=== PATIENT | male | born 1960 | race Caucasian/White ===

== ENCOUNTER 2018-09-11 09:11 | Emergency (ER) | payer OTHER ==
--- OUTSIDE RECORDS SUMMARY | 2018-09-11 09:17 | XMS REPORT ---
:1960 [facility] Address [address] [place] [address] [address] [place] [address] Care Team Providers Name Role Phone UNKNOWN, REFFERING Primary Care Provider Unavailable LES SANCHEZ M.D. Unavailable Unavailable Problems This patient has no known problems. Allergies, Adverse Reactions, Alerts This patient has no known allergies or adverse reactions. Medications This patient has no known medications. Results Test Description Test Time Test Comments Text Results Atomic Results Result Comments RPR, Qual 2017-10-17 02:43:00 Test Item Value Reference Range Comments RPR (test code=RPR) Non-Reactive Non-Reactive Thyroid Stimulating Hormone (TSH)2017-10-16 23:39:00 Test Item Value Reference Range Comments TSH (test code=TSH) 0.80 mIU/mL 0.270-4.200 Lipid [id number] 23:31:00 Test Item Value Reference Range Comments Cholesterol (test 156 mg/dL 0-200 code=CHOL) Triglycerides (test 208 mg/dL 9-200 code=TRIG) HDL (test code=HDL) 38 mg/dL 40-60 Chol/HDL (test 4.1 Ratio 0.0-5.0 code=CHOLPHDL) LDL, Calculated (test 76 0-130 (NOTE)RISK OF HEART code=LDLC) DISEASEPublished by Vincentian Heart AssociationAnalyte Optimal Boderline Increased RiskCHOL <200 200-239 >240TRIG <150 150-199 >200HDL Male: >60 <40HDL Female: >60 <50LDL <100 130-159 >160LDL NEAR OPTIMAL IS 100-129 VLDL (test code=VLDL) 42 mg/dL 5-40 LDL/HDL (test code=LDLPHDL) 2 Alcohol/Ethanol, [id number] 16:53:00 Test Item Value Reference Range Comments Alcohol, Ethyl (test <0.01 g/dL 0.00-0.01 Intoxicated 0.080 g/dL or code=ETOH) more Comprehensive Metabolic [id number] 16:53:00 Test Item Value Reference Range Comments Sodium (test code=NA) 139 mmol/L 135-145 Potassium (test code=K) 3.9 mmol/L 3.5-5.1 Chloride (test code=CL) 101 mmol/L 98-105 Carbon Dioxide (test 29 mmol/L 22-29 code=CO2) Glucose (test code=GLU) 90 mg/dL 70-115 Blood Urea Nitrogen 7 mg/dL 6-20 (test code=BUN) Creatinine (test 0.9 mg/dL 0.7-1.2 code=CREAT) Calcium (test code=CA) 9.2 mg/dL 8.3-10.5 Prot Total (test 6.5 g/dL 6.4-8.3 code=TP) Albumin (test code=ALB) 4.0 g/dL 3.5-5.2 A/G Ratio (test 1.6 Ratio code=AGRATIO) Globulin (test 2.5 2.9-3.1 code=GLOB) Bili Total (test 0.4 mg/dL 0.1-0.9 code=TBIL) Alk Phos (test 67 U/L 40-129 code=APHOS) AST (test code=AST) 36 U/L 1-40 ALT (test code=ALT) 47 U/L 1-41 BUN/Creatinine Ratio 7.8 (test code=BCRATIO) Anion Gap (test 9 mmol/L 7-16 code=AGAP) Estimated GFR (test >60 mL/min/1.73m2 eGFR (estimated Glomerular code=GFR) Filtration Rate) is an estimated value,calculated from the patient's serum creatinine using the MDRD equation.It is NOT the patient's actual GFR. The eGFR provides a more clinicallyuseful measure of kidney disease than serum creatinine alone.This calculation takes sex and race into account, if the informationis provided. If the race is not provided, and the patient isAfrican-Vincentian, multiply by 1.212. If sex is not provided, and thepatient is female, multiply by 0.742. Results for patients <18 years ofage have not been validated by the MDRD study and should be interpretedwith caution.eGFR Result Interpretation:eGFR > or=60 is in the Normal RangeeGFR < 60 may mean kidney diseaseeGFR < 15 may mean kidney failureRanges recommended by the National Kidney Foundation,http://nkdep.nih .gov [id number] 16:53:00 Test Item Value Reference Range Comments Amphetamine (test code=AMPH) Negative Negative For diagnostic purposes only, positive results should always be assessedin conjunctionwith the patient's medical history,clinical examination and otherfindings.To fulfill legal requirements, a more specific alternate chemical methodmust be used inorder to obtain a Confirmed analytical result. GC/MS is the preferred confirmatory method. Barbiturates (test code=ROSS) Negative Negative Benzodiazepine (test Negative Negative code=ALYSSA) Cocaine (test code=COCA) POSITIVE Negative Methadone (test code=MTHD) Negative Negative Opiates (test code=OPIA) Negative Negative PCP (test code=PCP) Negative Negative Propoxyphene (test Negative Negative code=PROPOX) THC (test code=THC) POSITIVE Negative CBC with [id number] 16:40:00 Test Item Value Reference Range Comments WBC (test code=WBC) 7.8 K/cumm 4.4-10.5 RBC (test code=RBC) 4.82 M/cumm 4.10-5.70 Hemoglobin (test code=HGB) 15.5 gm/dL 13.4-17.4 Hematocrit (test code=HCT) 44.0 % 38.7-52.0 MCV (test code=MCV) 91.3 fL 80-100 MCH (test code=MCH) 32.2 pg 27.0-32.5 MCHC (test code=MCHC) 35.2 g/dL 32.0-37.5 RDW (test code=RDW) 12.0 % 11.5-14.5 Platelet Count (test code=PLTCT) 219 K/cumm 140-440 MPV (test code=MPV) 9.6 fL Diff Method (test code=DIFFM) Auto Neutrophil (test code=NEUT) 44.1 % 36-70 Lymphocyte (test code=LYMPH) 45.4 % 12-44 Monocyte (test code=MONO) 6.3 % 0-11 Eosinophil (test code=EOS) 3.6 % 0-7 Basophil (test code=BASO) 0.7 % 0-2 Neutro Abs (test code=ANEUT) 3.5 K/cumm 1.6-7.4 Lymph Abs (test code=ALYMPH) 3.5 K/cumm 0.5-4.6 [place] Abs (test code=AMONO) 0.5 K/cumm 0.0-1.2 Eos Abs (test code=AEOS) 0.28 K/cumm 0.00-0.74 Baso Abs (test code=ABASO) 0.1 K/cumm 0.00-0.21 Urinalysis [id number] 16:30:00 Test Item Value Reference Range Comments Color (test code=COLOR) Yellow Yellow,Straw,Pl yellow Clarity (test code=CLAR) Clear Clear Specific [place] (test code=SPGR) 1.008 1.001-1.035 pH (test code=PH) 6.5 5.0-9.0 Ketone (test code=KET) Negative mg/dL Negative Glucose (test code=GLUCUR) Negative mg/dL Negative Protein (test code=PROT) Negative mg/dL Negative Bilirubin (test code=BILI) Negative mg/dL Negative Occult Blood (test code=UDOB) Negative Negative Urobilinogen (test code=UROB) 0.2 mg/dL 0.2-1.0 Nitrite (test code=NIT) Negative Negative Leuk Esterase (test code=LEUK) Negative Negative Micros Exam (test code=MEXAM) Not indicated
[2018-09-11 10:27] LABS: Absolute Lymphocytes (CBC) 2.7 K/uL (0.7-4.9); Absolute Monocytes 0.9 K/uL (0.1-1.3); Absolute Neutrophil 4.8 K/uL (1.8-8.0); Basophils % 0.5 % (0-1.3); Eosinophils % 2.3 % (0-4.4); Hematocrit 53.7 % (39.6-49.0); MCH 33.4 pg (27.0-35.0); MCV 95.1 fL (80-100); MPV 8.7 fL (7.6-11.3); Monocytes % 10.6 % (3.3-12.3); RBC Red Blood Cell Count 5.64 M/uL (4.33-5.43)
[2018-09-11 10:35] LABS: Protime INR 1.12
[2018-09-11 10:39] LABS: ALT/SGPT 89 U/L (12-78); AST/SGOT 41 U/L (15-37); Albumin 4.3 g/dL (3.4-5.0); Alkaline Phosphatase 86 U/L (45-117); BUN Blood Urea Nitrogen 11 mg/dL (7-18); Bicarbonate 25 mmol/L (21-32); Bilirubin Direct 0.2 mg/dL (0-0.2); Bilirubin Total 0.6 mg/dL (0.2-1.0); Glucose Level 81 mg/dL (74-106); Potassium 3.5 mmol/L (3.5-5.1); Protein, Total 8.9 g/dL (6.4-8.2); Sodium Level 141 mmol/L (136-145)
[2018-09-11] MEDS ORDERED: NICOTINE 21 MG/PAT TD ONE (10:45)
[2018-09-11] MEDS ORDERED: NA CHLORIDE 0.9% 1,000 ML ONE (10:45)
--- NOTE | 2018-09-11 13:30 | EKG ---
Test Date: 2018-09-11 Test Time: 10:00:23 [employer]: PAT MEASUREMENT RESULTS: Intervals: Rate: 103 VA: 140 QRSD: 74 QT: 332 QTc: 434 [place]: P: 72 VA: 140 QRS: 82 T: 53 INTERPRETIVE STATEMENTS: Sinus tachycardia Otherwise normal ECG Compared to ECG 11/24/2017 10:21:39 Sinus rhythm no longer present Electronically Signed On 09-11-18 13:29:39 CDT by Jere Puente
[2018-09-11 13:37] LABS: Urine Blood NEGATIVE (NEG); Urine Glucose NEGATIVE (NEG); Urine Protein NEGATIVE (NEG)
[2018-09-11 13:40] LABS: Barbiturates NEGATIVE (NEGATIVE); Benzodiazepines NEGATIVE (NEGATIVE); Cocaine NEGATIVE (NEGATIVE); METHAMPHETAM POSITIVE (NEGATIVE); Methadone NEGATIVE (NEGATIVE); Opiates NEGATIVE (NEGATIVE); Phencyclidine NEGATIVE (NEGATIVE); THC Cannibis NEGATIVE (NEGATIVE)
--- NOTE | 2018-09-11 16:21 | EDPHYS ---
Physician Documentation [facility] Name: Hi Chandler Age: 58 yrs Sex: Male : 1960 Arrival Date: 09/11/2018 Time: 09:17 Bed 17 Private MD: ED Physician Alex Whiteside HPI: 09/11 09:55 This 58 yrs old Male presents to ER via EMS with complaints of Suicidal kb Ideation. 09:55 The patient presents to the emergency department with suicide ideation, but the patient kb has no formulated plan. Onset: The symptoms/episode began/occurred today. Past psychiatric history: Prior diagnosis: schizophrenia, Psychiatric medications include: Invega. Associated signs and symptoms: Pertinent positives; suicide ideation. Severity of symptoms: At their worst the symptoms were moderate in the emergency department the symptoms are unchanged. The patient has experienced similar episodes in the past, a few times. The patient has not recently seen a physician. Pt reports his family called 911 because they knew he needed his Invega shot so they were trying to get him here to get it. States he missed his appt with [facility] to get his shot. States when he doesn't get it, he becomes homicidal. Denies suicidal and homicidal ideations at this time. [facility] reported pt c/o suicidal ideations on scene and asked to come to hospital to get help. Historical: - Allergies: 09:27 Ativan; ph - Home Meds: 13:14 Invega Oral [Active]; ph - PMHx: 09:27 Bipolar disorder; Schizophrenia; ph - PSHx: 09:27 None; ph - Immunization history:: Adult Immunizations unknown. - Social history:: Smoking status: unknown. - Ebola Screening: : No symptoms or risks identified at this time. ROS: 09:59 Constitutional: Negative for fever, chills, and weight loss, Cardiovascular: Negative kb for chest pain, palpitations, and edema, Respiratory: Negative for shortness of breath, cough, wheezing, and pleuritic chest pain, Abdomen/GI: Negative for abdominal pain, nausea, vomiting, diarrhea, and constipation, Back: Negative for injury and pain, : Negative for injury, bleeding, discharge, and swelling, MS/Extremity: Negative for injury and deformity, Skin: Negative for injury, rash, and discoloration, Neuro: Negative for headache, weakness, numbness, tingling, and seizure. 09:59 Psych: Positive for suicidal ideation. Exam: 09:59 Constitutional: This is a well developed, well nourished patient who is awake, alert, kb and in no acute distress. Head/Face: Normocephalic, atraumatic. Chest/axilla: Normal chest wall appearance and motion. Nontender with no deformity. No lesions are appreciated. Cardiovascular: Regular rate and rhythm with a normal S1 and S2. No gallops, murmurs, or rubs. Normal PMI, no JVD. No pulse deficits. Respiratory: Lungs have equal breath sounds bilaterally, clear to auscultation and percussion. No rales, rhonchi or wheezes noted. No increased work of breathing, no retractions or nasal flaring. Abdomen/GI: Soft, non-tender, with normal bowel sounds. No distension or tympany. No guarding or rebound. No evidence of tenderness throughout. Back: No spinal tenderness. No costovertebral tenderness. Full range of motion. Skin: Warm, dry with normal turgor. Normal color with no rashes, no lesions, and no evidence of cellulitis. MS/ Extremity: Pulses equal, no cyanosis. Neurovascular intact. Full, normal range of motion. Neuro: Awake and alert, GCS 15, oriented to person, place, time, and situation. Cranial nerves II-XII grossly intact. Motor strength 5/5 in all extremities. Sensory grossly intact. Cerebellar exam normal. Normal gait. 09:59 Psych: Behavior/mood is cooperative, Affect is calm, Oriented to person, place, time, Patient has no thoughts/intents to harm self or others. Judgement / Insight is normal. Memory is normal. Delusions/hallucinations are not present. Vital Signs: 09:26 BP 124 / 88; Pulse 96; Resp 18; Temp 97.6; Pulse Ox 99% on R/A; ph 12:51 BP 119 / 84; Pulse 80; Resp 18; Pulse Ox 100% on R/A; mh5 16:20 BP 120 / 74; Pulse 76; Resp 17; Pulse Ox 99% on R/A; mh5 MDM: 09:18 Patient medically screened. kb 10:00 Data reviewed: vital signs, nurses notes. Data interpreted: Pulse oximetry: on room air kb is 99 %. Interpretation: normal. 16:14 Counseling: I had a detailed discussion with the patient and/or guardian regarding: the kb historical points, exam findings, and any diagnostic results supporting the discharge/admit diagnosis, lab results, radiology results, the need for outpatient follow up, a family practitioner, a psychiatrist, to return to the emergency department if symptoms worsen or persist or if there are any questions or concerns that arise at home. ED course: [facility] screener evaluated pt. Reports she has seen him a lot in the past. She does not think he is a harm to himself or others and can go home. Pt has appt with [facility] scheduled for next week and will receive his shot then. Pt continues to deny homicidal or suicidal ideations. States he will keep appt next week and will return if needed.. 09/11 09:34 Order name: Acetaminophen; Complete Time: 10:48 kb 09/11 09:34 Order name: Basic Metabolic Panel; Complete Time: 10:48 kb 09/11 09:34 Order name: CBC with Diff; Complete Time: 10:32 kb 09/11 09:34 Order name: ETOH Level; Complete Time: 10:32 kb 09/11 09:34 Order name: Hepatic Function; Complete Time: 10:48 kb 09/11 09:34 Order name: PT-INR; Complete Time: 10:48 kb 09/11 09:34 Order name: Ptt, Activated; Complete Time: 10:48 kb 09/11 09:34 Order name: Salicylate; Complete Time: 10:48 kb 09/11 09:34 Order name: Urine Drug Screen; Complete Time: 13:41 kb 09/11 09:34 Order name: EKG; Complete Time: 09:35 kb 09/11 10:04 Order name: Diet Regular; Complete Time: 10:05 mh5 09/11 13:35 Order name: Urine Dipstick--Ancillary (enter results); Complete Time: 13:40 bd 09/11 09:34 Order name: EKG - Nurse/Tech; Complete Time: 09:59 kb 09/11 09:34 Order name: IV Saline Lock; Complete Time: 10:00 kb 09/11 09:34 Order name: Labs collected and sent; Complete Time: 10:06 kb 09/11 09:34 Order name: Urine Dipstick-Ancillary (obtain specimen); Complete Time: 13:15 kb 09/11 11:39 Order name: Diet Regular; Complete Time: 11:39 5 09/11 15:19 Order name: Diet Regular; Complete Time: 15:20 mh5 09/11 15:21 Order name: Regular EDMS Administered Medications: 10:55 Drug: NS 0.9% 1000 ml Route: IV; Rate: 1000 ml; Site: right antecubital; ph 16:35 Follow up: Response: No adverse reaction; IV Status: Completed infusion ph 11:07 Drug: Nicotine 21 mg/24 hr 1 patches {Note: applied to R upper arm.} Route: ph Transdermal; Site: affected area; 16:35 Follow up: Response: No adverse reaction ph Disposition: 09/11/18 16:20 Discharged to Home. Impression: Suicidal ideations - no longer having suicidal ideations. - Condition is Stable. - Discharge Instructions: Suicidal Feelings: How to Help Yourself. - Medication Reconciliation Form, Thank You Letter, Antibiotic Education, Prescription Opioid Use form. - Follow up: Emergency Department; When: As needed; Reason: Worsening of condition. Follow up: Private Physician; When: 2 - 3 days; Reason: Recheck today's complaints, Continuance of care, Re-evaluation by your physician. Addendum: 09/21/2018 08:07 Co-signature as Attending Physician, Alex Whiteside MD I agree with the assessment and k dr plan of care. Signatures: Dispatcher [employer] EDMD Eduarda Edward, FORM SETTER STEEL FORMS-C FORM SETTER STEEL FORMS-Ckb Alex Whiteside MD MD [facility] Tamie Del Toro RN RN ph Corrections: (The following items were deleted from the chart) 09/11 10:01 09:55 Pt reports his family called 911 because they knew he needed his Invega shot so kb they were trying to get him here to get it. States he missed his appt with [facility] to get his shot. States when he doesn't get it, he becomes homicidal. Denies suicidal and homicidal ideations at this time. [facility] reported pt c/o suicidal ideations on scene. . kb 16:36 16:20 09/11/2018 16:20 Discharged to Home. Impression: Suicidal ideations - no longer ph having suicidal ideations. Condition is Stable. Forms are Medication Reconciliation Form, Thank You Letter, Antibiotic Education, Prescription Opioid Use. Follow up: Emergency Department; When: As needed; Reason: Worsening of condition. Follow up: Private Physician; When: 2 - 3 days; Reason: Recheck today's complaints, Continuance of care, Re-evaluation by your physician. kb
--- NOTE | 2018-09-11 16:21 | ER ---
Nurse's Notes [facility] Name: Hi Chandler Age: 58 yrs Sex: Male : 1960 Arrival Date: 09/11/2018 Time: 09:17 Bed 17 Private MD: Diagnosis: Suicidal ideations-no longer having suicidal ideations Presentation: 09/11 09:23 Presenting complaint: EMS states: Pt reports having suicidal thoughts, denies attempt ph or organized plan, reports hx of schizophrenia and states that he did not take his meds today, PD on scene, mental health deputy notified. Transition of care: patient was not received from another setting of care. Onset of symptoms was September 11, 2018. Risk Assessment: Do you want to hurt yourself or someone else? Patient reports desire/thoughts of hurting themselves or someone else. Provider notified. Other: pt reports suicidal thoughts. Initial Sepsis Screen: Does the patient meet any 2 criteria? No. Patient's initial sepsis screen is negative. Does the patient have a suspected source of infection? No. Patient's initial sepsis screen is negative. Care prior to arrival: None. :23 Method Of Arrival: EMS: [facility] :23 Acuity: CARMELO 2 ph Historical: - Allergies: 09:27 Ativan; ph - Home Meds: 13:14 Invega Oral [Active]; ph - PMHx: :27 Bipolar disorder; Schizophrenia; ph - PSHx: :27 None; ph - Immunization history:: Adult Immunizations unknown. - Social history:: Smoking status: unknown. - Ebola Screening: : No symptoms or risks identified at this time. Screenin:03 Abuse screen: Denies threats or abuse. Denies injuries from another. Nutritional ph screening: No deficits noted. Tuberculosis screening: No symptoms or risk factors identified. Fall Risk None identified. Assessment: 10:02 General: Appears in no apparent distress. comfortable, slender, Behavior is calm, ph cooperative, appropriate for age. Pain: Denies pain. Neuro: Level of Consciousness is awake, alert, obeys commands, Oriented to person, place, time, situation. Cardiovascular: Capillary refill < 3 seconds in bilateral fingers Patient's skin is warm and dry. Respiratory: Airway is patent Respiratory effort is even, unlabored, Respiratory pattern is regular, symmetrical. GI: No signs and/or symptoms were reported involving the gastrointestinal system. Derm: Skin is intact, is healthy with good turgor, Skin is pink, warm \\T\\ dry. Musculoskeletal: Circulation, motion, and sensation intact. Range of motion: intact in all extremities. 10:53 Reassessment: Pt attempting to leave room and ambulate in hallway, states, " I just ph want to walk around and get some exercise and I want to go out and smoke a cigarette." Pt escorted back to room by nurse, explained to pt that he could not leave room or go out to smoke due to hospital policy, pt now resting quietly in bed, nicotine patch placed. 11:25 Reassessment: Pt again attempting to leave room, states, " I need to be released." Pt ph again instructed to remain in room by RN, informed pt that we are awaiting [facility] to come and evaluate him, pt now lying in bed quietly. 13:13 Reassessment: Patient appears in no apparent distress at this time. Patient and/or ph family updated on plan of care and expected duration. Pain level reassessed. Patient is alert, oriented x 3, equal unlabored respirations, skin warm/dry/pink. Pt resting quietly at this time, urine sample obtained. 14:30 Reassessment: Patient appears in no apparent distress at this time. Patient and/or ph family updated on plan of care and expected duration. Pain level reassessed. Patient is alert, oriented x 3, equal unlabored respirations, skin warm/dry/pink. Pt resting quietly, denies suicidal or homicidal thoughts at this time, awaiting evaluation by [facility]. 16:00 Reassessment: Patient appears in no apparent distress at this time. Patient and/or ph family updated on plan of care and expected duration. Pain level reassessed. Patient is alert, oriented x 3, equal unlabored respirations, skin warm/dry/pink. [facility] home furnishings sales representative at bedside to speak w/ pt. 16:32 Reassessment: Patient appears in no apparent distress at this time. Patient is alert, ph oriented x 3, equal unlabored respirations, skin warm/dry/pink. Pt instructed to keep follow up appointment next week, pt agrees to do so, continues to deny homicidal or suicidal thoughts, d/c home. Psych: 10:04 Subjective: Delusions are denied, Hallucinations are denied Having thoughts of suicide. ph Denies suicidal plan. Objective: Patient is cooperative, Speech is normal, Affect is appropriate. Interventions: Removed personal items and placed in bag. Patient placed in hospital gown. Searched person for dangerous items. Urine collected and sent for urine drug test. Belonging list filled out. Suicide Risk Assessment: Sad Person Scale: Sex of patient: Male: Score 1 point. Age of patient: Score 0 point if patient falls outside of specified age parameters. Depression: Score 1 point if signs of depression are present. Previous Attempt: Score 0 point if patient has not previously attempted suicide. Substance Abuse: Score 0 point if patient does not abuse alcohol or drugs. Rational Thinking: Score 0 point if patient has rational thinking. Social Support: Score 1 point if social support is lacking and/or unavailable. Organized Plan: Score 0 if patient did not have an organized plan in place. Relationship: Score 1 point if patient is , , , or for a single male Chronic Sickness: Score 0 point if patient does not have a chronic illness, debilitating, or severe disorder. TOTAL POINTS: If total points are 3-4, proposed clinical action is close follow-up/consider hospitalization. Safety Checks: Personal items have been removed. Door is open. No visitors are present at this time. Pt denies substance abuse. 10:06 Commitment: Patient will be a voluntary commitment. ph Vital Signs: 09:26 BP 124 / 88; Pulse 96; Resp 18; Temp 97.6; Pulse Ox 99% on R/A; ph 12:51 BP 119 / 84; Pulse 80; Resp 18; Pulse Ox 100% on R/A; mh5 16:20 BP 120 / 74; Pulse 76; Resp 17; Pulse Ox 99% on R/A; mh5 ED Course: 09:17 Patient arrived in ED. hb 09:18 Eduarda Edward FNP-C [facility]. kb 09:18 Alex Whiteside MD is Attending Physician. kb 09:23 Tamie Del Toro RN is Primary Nurse. ph 09:26 Triage completed. ph 09:28 Arm band placed on. ph 09:30 Safety checks: Items removed: yes. Door open/sign placed on door: yes. Family/friend mh5 present: no. Sitter present: Yes. 09:30 Patient has correct armband on for positive identification. Placed in gown. Bed in low mh5 position. Side rails up X 1. 09:45 Safety checks: Items removed: yes. Door open/sign placed on door: yes. Family/friend mh5 present: no. Sitter present: Yes. 09:59 Initial lab(s) drawn, by me, sent to lab. Inserted saline lock: 22 gauge in right mh5 antecubital area, using aseptic technique. Blood collected. 10:00 Warm blanket given. 5 10:00 Safety checks: Items removed: yes. Door open/sign placed on door: yes. Family/friend mh5 present: no. Sitter present: Yes. Patient has correct armband on for positive identification. 10:01 EKG done, by heavy equipment service technician. reviewed by Eduarda PETIT. at1 10:05 Acetaminophen Sent. mh5 10:05 Basic Metabolic Panel Sent. mh5 10:05 CBC with Diff Sent. mh5 10:05 ETOH Level Sent. mh5 10:05 Hepatic Function Sent. mh5 10:05 PT-INR Sent. mh5 10:05 Ptt, Activated Sent. mh5 10:05 Salicylate Sent. mh5 10:05 Urine Drug Screen Sent. mh5 10:15 Safety checks: Items removed: yes. Door open/sign placed on door: yes. Family/friend mh5 present: no. Sitter present: Yes. 10:30 Safety checks: Items removed: yes. Door open/sign placed on door: yes. Family/friend mh5 present: no. Sitter present: Yes. 10:43 Warm blanket given. 5 10:45 Safety checks: Items removed: yes. Door open/sign placed on door: yes. Family/friend mh5 present: no. Sitter present: Yes. 11:00 Safety checks: Items removed: yes. Door open/sign placed on door: yes. Family/friend mh5 present: no. Sitter present: Yes. 11:15 Safety checks: Items removed: yes. Door open/sign placed on door: yes. Family/friend mh5 present: no. Sitter present: Yes. 11:30 Safety checks: Items removed: yes. Door open/sign placed on door: yes. Family/friend mh5 present: no. Sitter present: Yes. 11:45 Safety checks: Items removed: yes. Door open/sign placed on door: yes. Family/friend mh5 present: no. Sitter present: Yes. 11:56 Diet: Patient given a regular meal tray. mh5 12:00 Safety checks: Items removed: yes. Door open/sign placed on door: yes. Family/friend mh5 present: no. Sitter present: Yes. 12:15 Safety checks: Items removed: yes. Door open/sign placed on door: yes. Family/friend mh5 present: no. Sitter present: Yes. 12:30 Safety checks: Items removed: yes. Door open/sign placed on door: yes. Family/friend mh5 present: no. Sitter present: Yes. 12:45 Safety checks: Items removed: yes. Door open/sign placed on door: yes. Family/friend mh5 present: no. Sitter present: Yes. 13:00 Safety checks: Items removed: yes. Door open/sign placed on door: yes. Family/friend mh5 present: no. Sitter present: Yes. 13:14 No provider procedures requiring assistance completed. ph 13:15 Safety checks: Items removed: yes. Door open/sign placed on door: yes. Family/friend mh5 present: no. Sitter present: Yes. 13:30 Safety checks: Items removed: yes. Door open/sign placed on door: yes. Family/friend mh5 present: no. Sitter present: Yes. 14:00 Safety checks: Items removed: yes. Door open/sign placed on door: yes. Family/friend mh5 present: no. Sitter present: Yes. 14:15 Safety checks: Items removed: yes. Door open/sign placed on door: yes. Family/friend mh5 present: no. Sitter present: Yes. 14:30 Safety checks: Items removed: yes. Door open/sign placed on door: yes. Family/friend mh5 present: no. Sitter present: Yes. 15:00 Safety checks: Items removed: yes. Door open/sign placed on door: yes. Family/friend mh5 present: no. Sitter present: Yes. 15:15 Safety checks: Items removed: yes. Door open/sign placed on door: yes. Family/friend mh5 present: no. Sitter present: Yes. 15:30 Safety checks: Items removed: yes. Door open/sign placed on door: yes. Family/friend mh5 present: no. Sitter present: Yes. 16:00 Safety checks: Family/friend present: Other: [facility] BUS MECHANIC IN WITH [employer]ATE[employer]. 5 Safety checks: Items removed: yes. Door open/sign placed on door: yes. Family/friend present: Sitter present: Yes. 16:15 Safety checks: Items removed: yes. Door open/sign placed on door: yes. Family/friend mh5 present: no. Sitter present: Yes. 16:35 IV discontinued, intact, bleeding controlled, No redness/swelling at site. Pressure ph dressing applied. Administered Medications: 10:55 Drug: NS 0.9% 1000 ml Route: IV; Rate: 1000 ml; Site: right antecubital; ph 16:35 Follow up: Response: No adverse reaction; IV Status: Completed infusion ph 11:07 Drug: Nicotine 21 mg/24 hr 1 patches {Note: applied to R upper arm.} Route: ph Transdermal; Site: affected area; 16:35 Follow up: Response: No adverse reaction ph Outcome: 16:20 Discharge ordered by . kb 16:34 Discharged to home ambulatory. ph 16:34 Condition: good 16:34 Discharge instructions given to patient, Instructed on discharge instructions, follow up and referral plans. Demonstrated understanding of instructions, follow-up care. 16:36 Patient left the ED. ph Signatures: Eduarda Edward, CLINICAL MANAGER HOME CARE-C CLINICAL MANAGER HOME CARE-Ckb Shelley Bruce, getter filler EKG Tat1 Tamie Del Toro RN RN Georgia Mari RN RN Shanda Feliciano [facility] Corrections: (The following items were deleted from the chart) 10:04 10:00 Patient has correct armband on for positive identification. Placed in gown. Bed mh5 in low position. Side rails up X 1. mh5 10:06 10:04 Subjective: Patient's mood is cooperative and pleasant Delusions are denied, ph Hallucinations are denied Having thoughts of suicide. Denies suicidal plan. ph 11:41 09:23 Risk Assessment: Do you want to hurt yourself or someone else? Patient reports no ph desire to harm self or others. ph 15:21 14:30 Safety checks: Items removed: yes. Door open/sign placed on door: yes. mh5 Family/friend present: no. Sitter present: No. mh5
[2018-09-11 16:41] VITALS: TEMP 97.6
[2018-09-11 16:43] VITALS: BP 120/74; O2SAT 99
== END 2018-09-11 16:36 | disposition home or self-care (01) ==
LOC: ER 09:11
CPT/HCPCS: 36415; 80048; 80076; 80307 ×8; 80320; 80329 ×2; 81003; 85025; 85610; 85730; 93005; 96360; 96361; 99285; J7030

== ENCOUNTER 2019-05-29 15:11 | Emergency (ER) | payer OTHER ==
--- OUTSIDE RECORDS SUMMARY | 2019-05-29 15:14 | XMS REPORT ---
:1960 [facility] Address [address] [place] [address] [address] [place] [address] Care Team Providers Name Role Phone UNKNOWN, [...] TSH (test code=TSH) 0.80 mIU/mL 0.270-4.200 Lipid [id number] 23:31:00 Test Item Value Reference Range Comments Cholesterol (test 156 mg/dL 0-200 code=CHOL) Triglycerides (test 208 mg/dL 9-200 code=TRIG) HDL (test code=HDL) 38 mg/dL 40-60 Chol/HDL (test 4.1 Ratio 0.0-5.0 code=CHOLPHDL) LDL, Calculated (test 76 0-130 (NOTE)RISK OF HEART code=LDLC) DISEASEPublished by Samoan Heart AssociationAnalyte Optimal Boderline Increased RiskCHOL <200 200-239 >240TRIG <150 150-199 >200HDL Male: >60 <40HDL Female: >60 <50LDL <100 130-159 >160LDL NEAR OPTIMAL IS 100-129 VLDL (test code=VLDL) 42 mg/dL 5-40 LDL/HDL (test code=LDLPHDL) 2 Alcohol/Ethanol, [id number] 16:53:00 Test Item Value Reference Range Comments Alcohol, Ethyl (test <0.01 g/dL 0.00-0.01 Intoxicated 0.080 g/dL or code=ETOH) more Comprehensive Metabolic [id number] 16:53:00 Test Item Value Reference Range Comments [...] race is not provided, and the patient isAfrican-Samoan, multiply by 1.212. If sex is not provided, and thepatient is female, multiply by 0.742. Results for patients <18 years ofage have not been validated by the MDRD study and should be interpretedwith caution.eGFR Result Interpretation:eGFR > or=60 is in the Normal RangeeGFR < 60 may mean kidney diseaseeGFR < 15 may mean kidney failureRanges recommended by the National Kidney Foundation,http://nkdep.nih .gov [id number] 16:53:00 Test Item Value Reference Range Comments [...] THC (test code=THC) POSITIVE Negative CBC with [id number] 16:40:00 Test Item Value Reference Range Comments [...] Lymph Abs (test code=ALYMPH) 3.5 K/cumm 0.5-4.6 [place] Abs (test code=AMONO) 0.5 K/cumm 0.0-1.2 Eos Abs (test code=AEOS) 0.28 K/cumm 0.00-0.74 Baso Abs (test code=ABASO) 0.1 K/cumm 0.00-0.21 Urinalysis [id number] 16:30:00 Test Item Value Reference Range Comments Color (test code=COLOR) Yellow Yellow,Straw,Pl yellow Clarity (test code=CLAR) Clear Clear Specific [place] (test code=SPGR) 1.008 1.001-1.035 pH (test code=PH) [...]
[2019-05-29 15:45] LABS: Eosinophils % 4.3 % (0-4.4); Hematocrit 43.7 % (39.6-49.0); Lymphocytes % 36.8 % (15.3-44.8); RBC Red Blood Cell Count 4.74 M/uL (4.33-5.43)
[2019-05-29 15:47] LABS: Protime INR 1.11
--- NOTE | 2019-05-29 15:50 | RAD REPORT ---
EXAM DESCRIPTION: RAD - Chest Single View - 05/29/2019 3:41 pm CLINICAL HISTORY: DYSPNEA Chest pain. COMPARISON: <Comparisons> FINDINGS: Portable technique limits examination quality. The lungs are grossly clear. The heart is normal in size. No displaced fractures. IMPRESSION: No acute intrathoracic process suspected.
[2019-05-29 16:05] LABS: ALT/SGPT 77 U/L (12-78); AST/SGOT 44 U/L (15-37); Albumin 3.3 g/dL (3.4-5.0); Alkaline Phosphatase 73 U/L (45-117); BUN Blood Urea Nitrogen 9 mg/dL (7-18); Bicarbonate 26 mmol/L (21-32); Bilirubin Direct 0.2 mg/dL (0-0.2); Bilirubin Total 0.6 mg/dL (0.2-1.0); Glucose Level 122 mg/dL (74-106); Potassium 3.2 mmol/L (3.5-5.1); Protein, Total 6.9 g/dL (6.4-8.2); Sodium Level 134 mmol/L (136-145); Troponin (Emerg Dept Use Only) < 0.02 ng/mL (0.0-0.045)
[2019-05-29] MEDS ORDERED: NA CHLORIDE 0.9% 1,000 ML ONE (16:05)
[2019-05-29 16:08] LABS: NT PRO-BNP < 5 pg/mL (<125)
[2019-05-29] MEDS ORDERED: POTASSIUM CL SA 10 MEQ TAB PO ONE (16:29)
--- NOTE | 2019-05-29 16:35 | ER ---
Nurse's Notes [facility] Name: Hi Chandler Age: 58 yrs Sex: Male : 1960 Arrival Date: 05/29/2019 Time: 15:12 Bed 6 Private MD: Diagnosis: Orthostatic hypotension;Volume depletion;Dyspnea Presentation: 05/29 15:17 Presenting complaint: Patient states: SOB x 2 days, also reports having syncopal ph episodes multiple times upon standing, denies chest pain or COPD hx. Transition of care: patient was not received from another setting of care. Onset of symptoms was May 29, 2019. Risk Assessment: Do you want to hurt yourself or someone else? Patient reports no desire to harm self or others. Initial Sepsis Screen: Does the patient meet any 2 criteria? No. Patient's initial sepsis screen is negative. Does the patient have a suspected source of infection? No. Patient's initial sepsis screen is negative. Care prior to arrival: None. 15:17 Method Of Arrival: Ambulatory ph 15:17 Acuity: CARMELO 3 ph Historical: - Allergies: 15:19 Ativan; ph - Home Meds: 15:19 Invega Oral [Active]; ph - PMHx: 15:19 Bipolar disorder; Schizophrenia; ph - PSHx: 15:19 None; ph - Immunization history:: Adult Immunizations unknown. - Social history:: Smoking status: Patient uses tobacco products, smokes one pack cigarettes per day. - Ebola Screening: : No symptoms or risks identified at this time. Screenin:40 Abuse screen: Denies threats or abuse. Denies injuries from another. Nutritional sv screening: No deficits noted. Tuberculosis screening: No symptoms or risk factors identified. Fall Risk None identified. Assessment: 15:55 General: Appears in no apparent distress. comfortable, well developed, Behavior is sv calm, cooperative, appropriate for age. Pain: Denies pain. Neuro: Level of Consciousness is awake, alert, obeys commands, Oriented to person, place, time, situation, Moves all extremities. Full function Gait is steady. Cardiovascular: Heart tones S1 S2 present Patient's skin is warm and dry. Rhythm is regular. Respiratory: Reports shortness of breath Airway is patent Respiratory effort is even, unlabored, Respiratory pattern is regular, symmetrical, Breath sounds are clear bilaterally. Derm: Skin is pink, warm \T\ dry. 16:25 Reassessment: pt reports he needs to leave soon, or else he will have no transportation iw to home, Derrick BUCIO notified, will continue to monitor. 16:39 Reassessment: Patient appears in no apparent distress at this time. Patient and/or sv family updated on plan of care and expected duration. Pain level reassessed. Patient is alert, oriented x 3, equal unlabored respirations, skin warm/dry/pink. Vital Signs: 15:19 BP 98 / 71; Pulse 94; Resp 18; Temp 97.8; Pulse Ox 98% on R/A; Weight 77.56 kg; ph 15:38 BP 105 / 73 Supine; Pulse 82; jb1 15:38 BP 105 / 76 Sitting; Pulse 87; jb1 15:38 BP 86 / 65 Standing; Pulse 98; jb1 ED Course: 15:12 Patient arrived in ED. as 15:18 Triage completed. ph 15:20 Arm band placed on. ph 15:21 Eduarda Edward FNP-C is PHCP. kb 15:21 Alex Whiteside MD is Attending Physician. kb 15:22 Mercedes Gonzalez, YADIRA is Primary Nurse. sv 15:39 XRAY Chest (1 view) In Process Unspecified. EDMS 15:39 Initial lab(s) drawn, by me, sent to lab. Inserted saline lock: 22 gauge in right jb1 antecubital area, using aseptic technique. Blood collected. 15:55 Patient has correct armband on for positive identification. Placed in gown. Bed in low sv position. Call light in reach. Pulse ox on. NIBP on. Door closed. Head of bed elevated. 16:42 No provider procedures requiring assistance completed. IV discontinued, intact, sv bleeding controlled, No redness/swelling at site. Pressure dressing applied. Administered Medications: 15:55 Drug: NS 0.9% 1000 ml Route: IV; Rate: 1000 ml; Site: right antecubital; sv 16:40 Follow up: Response: No adverse reaction; IV Status: Completed infusion; IV Intake: sv 900ml 16:14 Drug: Potassium Chloride 40 mEq Route: PO; sg 16:40 Follow up: Response: No adverse reaction sv Intake: 16:40 IV: 900ml; Total: 900ml. sv Outcome: 16:34 Discharge ordered by . kb 16:40 Discharged to home ambulatory. sv 16:40 Condition: stable 16:40 Discharge instructions given to patient, Instructed on discharge instructions, follow up and referral plans. Demonstrated understanding of instructions, follow-up care. 16:42 Patient left the ED. sv Signatures: Dispatcher [employer] EDMS Shaggy Contreras jb1 Eduarda Edward, STAVE PLANER TENDER-C STAVE PLANER TENDER-Mercedes Chow RN RN Nato Quesada RN RN sg Martinez, Amelia as Williams, Irene, RN RN Tamie Del Toro RN RN ph
--- NOTE | 2019-05-29 16:35 | EDPHYS ---
Physician Documentation [facility] Name: Hi Chandler Age: 58 yrs Sex: Male : 1960 Arrival Date: 05/29/2019 Time: 15:12 Bed 6 Private MD: ED Physician Alex Whiteside HPI: 05/29 15:31 This 58 yrs old Male presents to ER via Ambulatory with complaints of kb Shortness Of Breath. 15:31 The patient has shortness of breath at rest. Onset: The symptoms/episode began/occurred kb 2 day(s) ago. Duration: The symptoms are intermittent. The patient's shortness of breath is aggravated by nothing, is alleviated by nothing. Associated signs and symptoms: Pertinent positives: This patient does not have any pertinent positive signs or symptoms associated with shortness of breath. Severity of symptoms: At their worst the symptoms were moderate in the emergency department the symptoms have resolved. The patient has not experienced similar symptoms in the past. The patient has not recently seen a physician. Pt reports intermittent trouble breathing for 2 days. States "I don't feel it right now, but sometimes it just comes on when I'm laying in bed and focusing on my breathing. Then it feels like I just can't get enough air." Denies any pulmonary history, but has been smoking since he was 19 years old. Also reports he has been "blacking out" when changing positions too quickly for months. States he gets dizzy and has to rest his hands on his knees. Does not fall or lose consciousness. States the episodes last approx 15 secs. . Historical: - Allergies: 15:19 Ativan; ph - Home Meds: 15:19 Invega Oral [Active]; ph - PMHx: 15:19 Bipolar disorder; Schizophrenia; ph - PSHx: 15:19 None; ph - Immunization history:: Adult Immunizations unknown. - Social history:: Smoking status: Patient uses tobacco products, smokes one pack cigarettes per day. - Ebola Screening: : No symptoms or risks identified at this time. ROS: 15:30 Constitutional: Negative for fever, chills, and weight loss, ENT: Negative for injury, kb pain, and discharge, Neck: Negative for injury, pain, and swelling, Cardiovascular: Negative for chest pain, palpitations, and edema, Abdomen/GI: Negative for abdominal pain, nausea, vomiting, diarrhea, and constipation, Back: Negative for injury and pain, : Negative for injury, bleeding, discharge, and swelling, MS/Extremity: Negative for injury and deformity, Skin: Negative for injury, rash, and discoloration. 15:30 Respiratory: Positive for shortness of breath, Negative for cough, dyspnea on exertion, hemoptysis, orthopnea, pleurisy, sputum production, wheezing. 15:30 Neuro: Positive for dizziness, near syncope. Exam: 15:30 Constitutional: This is a well developed, well nourished patient who is awake, alert, kb and in no acute distress. Head/Face: Normocephalic, atraumatic. Eyes: Pupils equal round and reactive to light, extra-ocular motions intact. Lids and lashes normal. Conjunctiva and sclera are non-icteric and not injected. Cornea within normal limits. Periorbital areas with no swelling, redness, or edema. ENT: Nares patent. No nasal discharge, no septal abnormalities noted. Tympanic membranes are normal and external auditory canals are clear. Oropharynx with no redness, swelling, or masses, exudates, or evidence of obstruction, uvula midline. Mucous membranes moist. Neck: Trachea midline, no thyromegaly or masses palpated, and no cervical lymphadenopathy. Supple, full range of motion without nuchal rigidity, or vertebral point tenderness. No Meningismus. Chest/axilla: Normal chest wall appearance and motion. Nontender with no deformity. No lesions are appreciated. Cardiovascular: Regular rate and rhythm with a normal S1 and S2. No gallops, murmurs, or rubs. Normal PMI, no JVD. No pulse deficits. Respiratory: Lungs have equal breath sounds bilaterally, clear to auscultation and percussion. No rales, rhonchi or wheezes noted. No increased work of breathing, no retractions or nasal flaring. Abdomen/GI: Soft, non-tender, with normal bowel sounds. No distension or tympany. No guarding or rebound. No evidence of tenderness throughout. Skin: Warm, dry with normal turgor. Normal color with no rashes, no lesions, and no evidence of cellulitis. MS/ Extremity: Pulses equal, no cyanosis. Neurovascular intact. Full, normal range of motion. Neuro: Awake and alert, GCS 15, oriented to person, place, time, and situation. Cranial nerves II-XII grossly intact. Motor strength 5/5 in all extremities. Sensory grossly intact. Cerebellar exam normal. Normal gait. 15:55 ECG was reviewed by the Attending Physician. kb Vital Signs: 15:19 BP 98 / 71; Pulse 94; Resp 18; Temp 97.8; Pulse Ox 98% on R/A; Weight 77.56 kg; ph 15:38 BP 105 / 73 Supine; Pulse 82; jb1 15:38 BP 105 / 76 Sitting; Pulse 87; jb1 15:38 BP 86 / 65 Standing; Pulse 98; jb1 MDM: 15:21 Patient medically screened. kb 15:30 Data reviewed: vital signs, nurses notes. Data interpreted: Pulse oximetry: on room air kb is 98 %. Interpretation: normal. 16:32 Counseling: I had a detailed discussion with the patient and/or guardian regarding: the kb historical points, exam findings, and any diagnostic results supporting the discharge/admit diagnosis, lab results, radiology results, the need for outpatient follow up, a family practitioner, to return to the emergency department if symptoms worsen or persist or if there are any questions or concerns that arise at home. ED course: Educated pt on diagnostic findings. Educated on need for increased water intake.. Pt states he will increase water. Wants to leave now. . 05/29 15:24 Order name: Basic Metabolic Panel; Complete Time: 16:09 kb 05/29 15:24 Order name: CBC with Diff; Complete Time: 15:52 kb 05/29 15:24 Order name: LFT's; Complete Time: 16: kb 05/29 15:24 Order name: Magnesium; Complete Time: 16: kb 05/29 15:24 Order name: NT PRO-BNP; Complete Time: 16:09 kb 05/29 15:24 Order name: PT-INR; Complete Time: 15:52 kb 05/29 15:21 Order name: Orthostatics; Complete Time: 15:40 kb 05/29 15:24 Order name: Troponin (emerg Dept Use Only); Complete Time: 16:09 kb 05/29 15:24 Order name: XRAY Chest (1 view); Complete Time: 15:52 kb 05/29 15:24 Order name: EKG; Complete Time: 15:25 kb 05/29 15:24 Order name: Cardiac monitoring; Complete Time: 15:39 kb 05/29 15:24 Order name: EKG - Nurse/Tech; Complete Time: 16:08 kb 05/29 15:24 Order name: IV Saline Lock; Complete Time: 15:39 kb 05/29 15:24 Order name: Labs collected and sent; Complete Time: 15:40 kb 05/29 15:24 Order name: O2 Per Protocol; Complete Time: 15:40 kb 05/29 15:24 Order name: O2 Sat Monitoring; Complete Time: 15:40 kb EC:55 Rate is 85 beats/min. Rhythm is regular, Normal Sinus Rhythm. QRS [place] is Normal. LA kb interval is normal at 156 msec. QRS interval is normal at 84 msec. QT interval is normal at 374 msec. Interpreted by me. Reviewed by me. Administered Medications: 15:55 Drug: NS 0.9% 1000 ml Route: IV; Rate: 1000 ml; Site: right antecubital; sv 16:40 Follow up: Response: No adverse reaction; IV Status: Completed infusion; IV Intake: sv 900ml 16:14 Drug: Potassium Chloride 40 mEq Route: PO; sg 16:40 Follow up: Response: No adverse reaction sv Disposition: 18:53 Co-signature as Attending Physician, Alex Whiteside MD I agree with the assessment and kdr plan of care. Disposition: 05/29/19 16:34 Discharged to Home. Impression: Orthostatic hypotension, Volume depletion, Dyspnea. - Condition is Stable. - Discharge Instructions: Shortness of Breath, [id number], Dehydration, Adult, [id number]. - Medication Reconciliation Form, Thank You Letter, Antibiotic Education, Prescription Opioid Use form. - Follow up: Emergency Department; When: As needed; Reason: Worsening of condition. Follow up: Private Physician; When: 2 - 3 days; Reason: Recheck today's complaints, Continuance of care, Re-evaluation by your physician. Signatures: Dispatcher [employer] Eduarda Rodriguez FNP-C FNP-Ckb Verde, Stephanie, RN RN sv Nato Buenrostro RN RN sg Rittger, Kevin, MD MD [facility] Tamie Del Toro RN RN ph Corrections: (The following items were deleted from the chart) 16:42 16:34 05/29/2019 16:34 Discharged to Home. Impression: Orthostatic hypotension; Volume sv depletion; Dyspnea. Condition is Stable. Forms are Medication Reconciliation Form, Thank You Letter, Antibiotic Education, Prescription Opioid Use. Follow up: Emergency Department; When: As needed; Reason: Worsening of condition. Follow up: Private Physician; When: 2 - 3 days; Reason: Recheck today's complaints, Continuance of care, Re-evaluation by your physician. kb
[2019-05-29 16:50] VITALS: TEMP 97.8; O2SAT 98
[2019-05-29 16:52] VITALS: BP 86/65
--- NOTE | 2019-05-30 07:35 | EKG ---
Test Date: 2019-05-29 Test Time: 15:54:09 Recruiting Specialist: PAT MEASUREMENT RESULTS: Intervals: Rate: 85 NE: 156 QRSD: 84 QT: 374 QTc: 445 [place]: P: 65 NE: 156 QRS: 78 T: 67 INTERPRETIVE STATEMENTS: Normal sinus rhythm Normal ECG Compared to ECG 09/11/2018 10:00:23 Sinus tachycardia no longer present Electronically Signed On 05-30-19 07:34:22 CDT by Roddy Pierre
== END 2019-05-29 16:42 | disposition home or self-care (01) ==
LOC: ER 15:11
DX: E86.9 Volume depletion, unspecified (principal); F17.210 Nicotine dependence, cigarettes, uncomplicated; F31.9 Bipolar disorder, unspecified; F20.9 Schizophrenia, unspecified; Z88.8 Allergy status to other drugs, medicaments and biological substances
CPT/HCPCS: 93005; 85025; 80048; 36415; 83735; 85610; 80076; 84484; 83880; 71045; 96360; 99284; J7030

== ENCOUNTER 2019-07-15 13:43 | Emergency (ER) | payer OTHER ==
--- OUTSIDE RECORDS SUMMARY | 2019-07-15 13:51 | XMS REPORT ---
:1960 Author Organization [facility] Address [address] [place] [address] [address] [place] [address] Care Team Providers Name Role Phone UNKNOWN, [...] TSH (test code=TSH) 0.80 mIU/mL 0.270-4.200 Lipid [id number] 23:31:00 Test Item Value Reference Range Comments Cholesterol (test 156 mg/dL 0-200 code=CHOL) Triglycerides (test 208 mg/dL 9-200 code=TRIG) HDL (test code=HDL) 38 mg/dL 40-60 Chol/HDL (test 4.1 Ratio 0.0-5.0 code=CHOLPHDL) LDL, Calculated (test 76 0-130 (NOTE)RISK OF HEART code=LDLC) DISEASEPublished by [place] Heart AssociationAnalyte Optimal Boderline Increased RiskCHOL <200 200-239 >240TRIG <150 150-199 >200HDL Male: >60 <40HDL Female: >60 <50LDL <100 130-159 >160LDL NEAR OPTIMAL IS 100-129 VLDL (test code=VLDL) 42 mg/dL 5-40 LDL/HDL (test code=LDLPHDL) 2 Alcohol/Ethanol, [id number] 16:53:00 Test Item Value Reference Range Comments Alcohol, Ethyl (test <0.01 g/dL 0.00-0.01 Intoxicated 0.080 g/dL or code=ETOH) more Comprehensive Metabolic [id number] 16:53:00 Test Item Value Reference Range Comments [...] race is not provided, and the patient isAfrican-Bermudian, multiply by 1.212. If sex is not provided, and thepatient is female, multiply by 0.742. Results for patients <18 years ofage have not been validated by the MDRD study and should be interpretedwith caution.eGFR Result Interpretation:eGFR > or=60 is in the Normal RangeeGFR < 60 may mean kidney diseaseeGFR < 15 may mean kidney failureRanges recommended by the National Kidney Foundation,http://nkdep.nih .gov [id number] 16:53:00 Test Item Value Reference Range Comments [...] THC (test code=THC) POSITIVE Negative CBC with [id number] 16:40:00 Test Item Value Reference Range Comments [...] Lymph Abs (test code=ALYMPH) 3.5 K/cumm 0.5-4.6 [place] Abs (test code=AMONO) 0.5 K/cumm 0.0-1.2 Eos Abs (test code=AEOS) 0.28 K/cumm 0.00-0.74 Baso Abs (test code=ABASO) 0.1 K/cumm 0.00-0.21 Urinalysis [id number] 16:30:00 Test Item Value Reference Range Comments Color (test code=COLOR) Yellow Yellow,Straw,Pl yellow Clarity (test code=CLAR) Clear Clear Specific [place] (test code=SPGR) 1.008 1.001-1.035 pH (test code=PH) [...]
[2019-07-15] MEDS ORDERED: DOXYCYCLINE 100 MG CAP PO ONE (15:03)
[2019-07-15] MEDS ORDERED: SMZ./TMP. 800/160 MG TABLET ONE (15:03)
--- NOTE | 2019-07-15 15:15 | ER ---
Nurse's Notes [facility] Name: Hi Chandler Age: 58 yrs Sex: Male : 1960 Arrival Date: 07/15/2019 Time: 13:46 Bed 26 Private MD: Unknown, Unknown Diagnosis: Rash and other nonspecific skin eruption;Cellulitis and acute lymphangitis of face Presentation: 07/15 14:04 Presenting complaint: Patient states: I have some spots on my face that I feel like la1 might be infected since yesterday. Transition of care: patient was not received from another setting of care. Onset of symptoms was July 15, 2019. Risk Assessment: Do you want to hurt yourself or someone else? Patient reports no desire to harm self or others. Initial Sepsis Screen: Does the patient meet any 2 criteria? No. Patient's initial sepsis screen is negative. Does the patient have a suspected source of infection? No. Patient's initial sepsis screen is negative. Care prior to arrival: None. 14:04 Method Of Arrival: Ambulatory la1 14:04 Acuity: CARMELO 4 la1 Triage Assessment: 15:13 General: Appears in no apparent distress. Behavior is calm. tw2 Historical: - Allergies: 14:04 Ativan; la1 - Home Meds: 14:28 Invega Oral [Active]; tw2 - PMHx: 14:04 Bipolar disorder; Schizophrenia; la1 - PSHx: 14:28 None; tw2 - Immunization history:: Adult Immunizations up to date. - Social history:: Smoking status: Patient uses tobacco products, smokes one pack cigarettes per day. - Ebola Screening: : No symptoms or risks identified at this time. - Family history:: not pertinent. Screenin:27 Abuse screen: Denies threats or abuse. Nutritional screening: No deficits noted. tw2 Tuberculosis screening: No symptoms or risk factors identified. Fall Risk None identified. Assessment: 14:10 General: Appears in no apparent distress. Behavior is cooperative. Pain: Denies pain. tw2 Neuro: Level of Consciousness is awake, alert, obeys commands, Oriented to person, place, time, situation. Cardiovascular: Patient's skin is warm and dry. Respiratory: Airway is patent Respiratory effort is even, unlabored, Respiratory pattern is regular, symmetrical. GI: No signs and/or symptoms were reported involving the gastrointestinal system. : No signs and/or symptoms were reported regarding the genitourinary system. EENT: No signs and/or symptoms were reported regarding the EENT system. Derm: Wound noted back and face Wound is reddened and scabbed sores noted to face and back. Musculoskeletal: Range of motion: intact in all extremities. 15:13 Reassessment: Patient appears in no apparent distress at this time. No changes from tw2 previously documented assessment. Patient and/or family updated on plan of care and expected duration. Pain level reassessed. Patient is alert, oriented x 3, equal unlabored respirations, skin warm/dry/pink. Vital Signs: 14:04 BP 122 / 96; Pulse 110; Resp 16; Temp 97.3; Pulse Ox 100% on R/A; Weight 77.11 kg; la1 Height 5 ft. 11 in. (180.34 cm); 15:13 BP 122 / 86; Pulse 92; Resp 17; Pulse Ox 99% on R/A; tw2 14:04 Body Mass Index 23.71 (77.11 kg, 180.34 cm) la1 ED Course: 13:46 Patient arrived in ED. ag5 13:46 Unknown, Unknown is Private Physician. ag5 14:03 Arm band placed on left wrist. la1 14:05 Triage completed. la1 14:05 Bed in low position. Call light in reach. tw2 14:07 Ricardo Corrales MD is Attending Physician. [facility] 14:27 Aracelis Weiss, YADIRA is Primary Nurse. tw2 15:13 No provider procedures requiring assistance completed. Patient did not have IV access tw2 during this emergency room visit. Administered Medications: 15:03 Drug: Bactrim (160 mg-800 mg (DS) 1 tablet Route: PO; tw2 15:12 Follow up: Response: No adverse reaction tw2 15:03 Drug: Doxycycline 200 mg Route: PO; tw2 15:13 Follow up: Response: No adverse reaction tw2 Point of Care Testing: Blood Glucose: 15:00 Blood Glucose: 89 mg/dL; lt1 Ranges: Outcome: 15:13 Discharged to home ambulatory. tw2 15:13 Condition: stable 15:13 Discharge instructions given to patient, Instructed on discharge instructions, follow up and referral plans. medication usage, wound care, Demonstrated understanding of instructions, follow-up care, medications, wound care, Prescriptions given X 3. 15:14 Discharge ordered by . tw2 15:14 Patient left the ED. tw2 Signatures: Ricardo Corrales MD MD cha Attema, Lee, RN RN la1 Aracelis Weiss RN RN tw2 Valentin Maurer Leah 1 Corrections: (The following items were deleted from the chart) 15:37 15:37 General: Appears in no apparent distress. Behavior is calm, tw2 tw2
--- NOTE | 2019-07-15 15:15 | EDPHYS ---
Physician Documentation [facility] Name: Hi Chandler Age: 58 yrs Sex: Male : 1960 Arrival Date: 07/15/2019 Time: 13:46 Bed 26 Private MD: Unknown, Unknown ED Physician Ricardo Corrales HPI: 07/15 14:59 This 58 yrs old Male presents to ER via Ambulatory with complaints of lindsey Infection. 14:59 The patient presents with cellulitis of the face and back. Description: erythematous, lindsey raised. Onset: The symptoms/episode began/occurred 5 day(s) ago. Possible cause(s): unknown. Associated signs and symptoms: The patient has no apparent associated signs or symptoms. The patient has experienced similar episodes in the past, a few times. Historical: - Allergies: 14:04 Ativan; la1 - Home Meds: 14:28 Invega Oral [Active]; tw2 - PMHx: 14:04 Bipolar disorder; Schizophrenia; la1 - PSHx: 14:28 None; tw2 - Immunization history:: Adult Immunizations up to date. - Social history:: Smoking status: Patient uses tobacco products, smokes one pack cigarettes per day. - Ebola Screening: : No symptoms or risks identified at this time. - Family history:: not pertinent. ROS: 14:59 Constitutional: Negative for fever, chills, and weight loss, Eyes: Negative for injury, lindsey pain, redness, and discharge, ENT: Negative for injury, pain, and discharge, Neck: Negative for injury, pain, and swelling, Cardiovascular: Negative for chest pain, palpitations, and edema, Respiratory: Negative for shortness of breath, cough, wheezing, and pleuritic chest pain, Abdomen/GI: Negative for abdominal pain, nausea, vomiting, diarrhea, and constipation, Back: Negative for injury and pain, : Negative for injury, bleeding, discharge, and swelling, MS/Extremity: Negative for injury and deformity, Neuro: Negative for headache, weakness, numbness, tingling, and seizure, Psych: Negative for depression, anxiety, suicide ideation, homicidal ideation, and hallucinations, Allergy/Immunology: Negative for hives, rash, and allergies, Endocrine: Negative for neck swelling, polydipsia, polyuria, polyphagia, and marked weight changes, Hematologic/Lymphatic: Negative for swollen nodes, abnormal bleeding, and unusual bruising. 14:59 Skin: Positive for cellulitis, lesions, swelling. Exam: 14:59 Constitutional: This is a well developed, well nourished patient who is awake, alert, lindsey and in no acute distress. Head/Face: Normocephalic, atraumatic. Eyes: Pupils equal round and reactive to light, extra-ocular motions intact. Lids and lashes normal. Conjunctiva and sclera are non-icteric and not injected. Cornea within normal limits. Periorbital areas with no swelling, redness, or edema. ENT: Nares patent. No nasal discharge, no septal abnormalities noted. Tympanic membranes are normal and external auditory canals are clear. Oropharynx with no redness, swelling, or masses, exudates, or evidence of obstruction, uvula midline. Mucous membranes moist. Neck: Trachea midline, no thyromegaly or masses palpated, and no cervical lymphadenopathy. Supple, full range of motion without nuchal rigidity, or vertebral point tenderness. No Meningismus. Chest/axilla: Normal chest wall appearance and motion. Nontender with no deformity. No lesions are appreciated. Cardiovascular: Regular rate and rhythm with a normal S1 and S2. No gallops, murmurs, or rubs. Normal PMI, no JVD. No pulse deficits. Respiratory: Lungs have equal breath sounds bilaterally, clear to auscultation and percussion. No rales, rhonchi or wheezes noted. No increased work of breathing, no retractions or nasal flaring. Abdomen/GI: Soft, non-tender, with normal bowel sounds. No distension or tympany. No guarding or rebound. No evidence of tenderness throughout. Back: No spinal tenderness. No costovertebral tenderness. Full range of motion. Male : Normal genitalia with no discharge or lesions. MS/ Extremity: Pulses equal, no cyanosis. Neurovascular intact. Full, normal range of motion. Neuro: Awake and alert, GCS 15, oriented to person, place, time, and situation. Cranial nerves II-XII grossly intact. Motor strength 5/5 in all extremities. Sensory grossly intact. Cerebellar exam normal. Normal gait. Psych: Awake, alert, with orientation to person, place and time. Behavior, mood, and affect are within normal limits. 14:59 Skin: cellulitis, that is minimal, induration, that is mild is noted. Vital Signs: 14:04 BP 122 / 96; Pulse 110; Resp 16; Temp 97.3; Pulse Ox 100% on R/A; Weight 77.11 kg; la1 Height 5 ft. 11 in. (180.34 cm); 15:13 BP 122 / 86; Pulse 92; Resp 17; Pulse Ox 99% on R/A; tw2 14:04 Body Mass Index 23.71 (77.11 kg, 180.34 cm) la1 MDM: 14:07 Patient medically screened. [facility] 14:59 Data reviewed: vital signs, nurses notes. [facility] 07/15 15:09 Order name: Glucose, Ancillary Testing EDIL 07/15 14:59 Order name: Blood Glucose Level; Complete Time: 15:00 [facility] Administered Medications: 15:03 Drug: Bactrim (160 mg-800 mg (DS) 1 tablet Route: PO; tw2 15:12 Follow up: Response: No adverse reaction tw2 15:03 Drug: Doxycycline 200 mg Route: PO; tw2 15:13 Follow up: Response: No adverse reaction tw2 Point of Care Testing: Blood Glucose: 15:00 Blood Glucose: 89 mg/dL; lt1 Ranges: Critical Glucose Levels:Adult <50 mg/dl or >400 mg/dl <40 mg/dl or >180 mg/dl Disposition: 07/15/19 15:14 Discharged to Home. Impression: Rash and other nonspecific skin eruption, Cellulitis and acute lymphangitis of face. - Condition is Stable. - Discharge Instructions: Cellulitis, Adult, Bipolar Disorder, Rash, Cellulitis, Adult, Dsbz-wo-Ndib, Rash, Mwog-fw-[id number]. - Prescriptions for Bactroban 2 % Topical Ointment - Apply to affected area 1 application by TOPICAL route every 12 hours; 30 gram. Doxycycline Hyclate 100 mg Oral Tablet - take 1 tablet by ORAL route every 12 hours; 20 tablet. Bactrim DS 800- 160 mg Oral Tablet - take 1 tablet by ORAL route every 12 hours for 10 days; 20 tablet. - Antibiotic Education, Prescription Opioid Use form. - Medication Reconciliation Form (07/15/19 15:14). tw2 - Thank You Letter (07/15/19 15:14). tw2 - Follow up: Private Physician; When: 2 - 3 days; Reason: Recheck today's complaints, Continuance of care, Re-evaluation by your physician. - Problem is new. - Symptoms have improved. Signatures: Ricardo Corrales MD MD cha Attema, Lee RN RN la1 Aracelis Weiss RN RN tw2
[2019-07-15 16:55] VITALS: TEMP 97.3
[2019-07-15 16:57] VITALS: BP 122/86; O2SAT 99
== END 2019-07-15 15:14 | disposition home or self-care (01) ==
LOC: ER 13:43
DX: L03.211 Cellulitis of face (principal); L03.212 Acute lymphangitis of face; F31.9 Bipolar disorder, unspecified; F20.9 Schizophrenia, unspecified; F17.210 Nicotine dependence, cigarettes, uncomplicated; Z88.8 Allergy status to other drugs, medicaments and biological substances
CPT/HCPCS: 82962; 99283

== ENCOUNTER 2020-01-29 12:43 | Emergency (ER) | payer OTHER ==
--- OUTSIDE RECORDS SUMMARY | 2020-01-29 12:46 | XMS REPORT ---
:1960 [facility] Address [address] [place] [address] Dr. S[address] [place] [address] Care Team Providers Name Role Phone UNKNOWN, [...] TSH (test code=TSH) 0.80 mIU/mL 0.270-4.200 Lipid [id number] 23:31:00 Test Item Value Reference Range Comments Cholesterol (test 156 mg/dL 0-200 code=CHOL) Triglycerides (test 208 mg/dL 9-200 code=TRIG) HDL (test code=HDL) 38 mg/dL 40-60 Chol/HDL (test 4.1 Ratio 0.0-5.0 code=CHOLPHDL) LDL, Calculated (test 76 0-130 (NOTE)RISK OF HEART code=LDLC) DISEASEPublished by [place] Islander Heart AssociationAnalyte Optimal Boderline Increased RiskCHOL <200 200-239 >240TRIG <150 150-199 >200HDL Male: >60 <40HDL Female: >60 <50LDL <100 130-159 >160LDL NEAR OPTIMAL IS 100-129 VLDL (test code=VLDL) 42 mg/dL 5-40 LDL/HDL (test code=LDLPHDL) 2 Alcohol/Ethanol, [id number] 16:53:00 Test Item Value Reference Range Comments Alcohol, Ethyl (test <0.01 g/dL 0.00-0.01 Intoxicated 0.080 g/dL or code=ETOH) more Comprehensive Metabolic [id number] 16:53:00 Test Item Value Reference Range Comments [...] race is not provided, and the patient isAfrican-[place], multiply by 1.212. If sex is not provided, and thepatient is female, multiply by 0.742. Results for patients <18 years ofage have not been validated by the MDRD study and should be interpretedwith caution.eGFR Result Interpretation:eGFR > or=60 is in the Normal RangeeGFR < 60 may mean kidney diseaseeGFR < 15 may mean kidney failureRanges recommended by the National Kidney Foundation,http://nkdep.nih .gov [id number] 16:53:00 Test Item Value Reference Range Comments [...] THC (test code=THC) POSITIVE Negative CBC with [id number] 16:40:00 Test Item Value Reference Range Comments [...] Lymph Abs (test code=ALYMPH) 3.5 K/cumm 0.5-4.6 [place] Abs (test code=AMONO) 0.5 K/cumm 0.0-1.2 Eos Abs (test code=AEOS) 0.28 K/cumm 0.00-0.74 Baso Abs (test code=ABASO) 0.1 K/cumm 0.00-0.21 Urinalysis [id number] 16:30:00 Test Item Value Reference Range Comments Color (test code=COLOR) Yellow Yellow,Straw,Pl yellow Clarity (test code=CLAR) Clear Clear Specific [place] (test code=SPGR) 1.008 1.001-1.035 pH (test code=PH) [...]
--- NOTE | 2020-01-29 14:21 | ER ---
Nurse's Notes [facility] Name: Hi Chandler Age: 59 yrs Sex: Male : 1960 Arrival Date: 01/29/2020 Time: 12:46 Bed 12 Private MD: Diagnosis: Thoracic back pain Presentation: 01/28 13:10 Chief complaint: Patient states: fell back off a ladder day before yesterday. states dm5 feet were about 4 feet off the ground. pt states they twisted to try to catch themselves. Wants to make sure nothing was broken. Coronavirus screen: The patient has NOT traveled to a country currently being monitored by the [facility] within the last 14 days. Proceed with normal triage procedures. The patient has NOT had contact with any known and/or suspected case of coronavirus. Proceed with normal triage procedures. Ebola Screen: Patient negative for fever greater than or equal to 101.5 degrees Fahrenheit, and additional compatible Ebola Virus Disease symptoms Patient denies exposure to infectious person. Patient denies travel to an Ebola-affected area in the 21 days before illness onset. No symptoms or risks identified at this time. Initial Sepsis Screen: Does the patient meet any 2 criteria? No. Patient's initial sepsis screen is negative. Does the patient have a suspected source of infection? No. Patient's initial sepsis screen is negative. Risk Assessment: Do you want to hurt yourself or someone else? Patient reports no desire to harm self or others. Note pt states the pain is near the middle of their back and that they landed on the dirt and grass. 13:10 Method Of Arrival: Ambulatory dm5 13:10 Acuity: CARMELO 4 dm5 Screenin:49 Abuse screen: Denies threats or abuse. Denies injuries from another. Nutritional dm5 screening: No deficits noted. Tuberculosis screening: No symptoms or risk factors identified. Fall Risk None identified. Assessment: 14:49 Pain: Complains of pain in mid back area. dm5 Vital Signs: 13:10 BP 107 / 79; Pulse 108; Resp 20; Temp 98.2; Pulse Ox 98% on R/A; Weight 79.38 kg; dm5 Height 5 ft. 11 in. (180.34 cm); Pain 7/10; 13:10 Body Mass Index 24.41 (79.38 kg, 180.34 cm) dm5 ED Course: 12:46 Patient arrived in ED. ag5 13:13 Triage completed. dm5 13:14 Shade Veras [facility]C [facility] la1 13:14 Alex Whiteside MD is Attending Physician. la1 13:22 Nena Merrill, RN is Primary Nurse. dm5 14:49 Patient has correct armband on for positive identification. dm5 14:49 No provider procedures requiring assistance completed. Patient did not have IV access dm5 during this emergency room visit. Administered Medications: 13:29 Not Given (Other Intervention Used): [place] (7.5 mg-325 mg) 1 tabs PO once; RASS on la1 ADMIN: Combtv4, Very Agttd3, Agttd2, Rstlss1, AlertClm0, Drwsy-1, Lt Sdtn-2, Mod Sdtn-3, Dp Sdtn-4, UnArsble-5 Outcome: 13:30 Discharge ordered by . la1 13:42 Discharged to home ambulatory. jl7 13:42 Condition: stable 13:42 Discharge instructions given to patient, Instructed on discharge instructions, follow up and referral plans. Demonstrated understanding of instructions, follow-up care, instructions provided by ERP prior to pt departure 13:43 Patient left the ED. jl7 Signatures: Nena Merrill, RN RN bree5 Shade Veras FNP-C FNP-[facility] Óscar Ray RN RN [email or web address] Valentin Maurer [facility]
--- NOTE | 2020-01-29 14:22 | EDPHYS ---
Physician Documentation [facility] Name: Hi Chandler Age: 59 yrs Sex: Male : 1960 Arrival Date: 01/29/2020 Time: 12:46 Bed 12 Private MD: ED Physician Alex Whiteside HPI: 01/28 13:53 This 59 yrs old Male presents to ER via Ambulatory with complaints of Fall la1 Injury, Back Pain. 13:53 Details of fall: The patient fell from a height, from a ladder, approximately 4 feet. la1 Onset: The symptoms/episode began/occurred 2 day(s) ago. Associated injuries: The patient sustained upper back injury, pain. Severity of symptoms: At their worst the symptoms were mild. The patient has not experienced similar symptoms in the past. pt reports he fell off of a ladder 2 days ago and hurt his back where he has a previous fracture. pt reports that he needs an MRI so he can see pain management. . ROS: 13:54 Constitutional: Negative for fever, chills, and weight loss, Eyes: Negative for injury, la1 pain, redness, and discharge, Cardiovascular: Negative for chest pain, palpitations, and edema, Respiratory: Negative for shortness of breath, cough, wheezing, and pleuritic chest pain, Abdomen/GI: Negative for abdominal pain, nausea, vomiting, diarrhea, and constipation, MS/Extremity: Negative for injury and deformity, Neuro: Negative for headache, weakness, numbness, tingling, and seizure. 13:54 Back: Positive for pain at rest. Exam: 13:55 Constitutional: This is a well developed, well nourished patient who is awake, alert, la1 and in no acute distress. Head/Face: Normocephalic, atraumatic. Neck: Trachea midline,,no or vertebral point tenderness. Chest/axilla: Normal chest wall appearance and motion. Cardiovascular: no JVD Back: very mild spinal tenderness in the thoracic region. No costovertebral tenderness. Full range of motion. Skin: Warm, dry with normal turgor. Normal color with no rashes, no lesions, and no evidence of cellulitis. Neuro: Awake and alert, GCS 15, oriented to person, place, time, and situation. Cranial nerves II-XII grossly intact. Motor strength 5/5 in all extremities. Sensory grossly intact. Normal gait. Vital Signs: 13:10 BP 107 / 79; Pulse 108; Resp 20; Temp 98.2; Pulse Ox 98% on R/A; Weight 79.38 kg; dm5 Height 5 ft. 11 in. (180.34 cm); Pain 7/10; 13:10 Body Mass Index 24.41 (79.38 kg, 180.34 cm) dm5 MDM: 13:16 Patient medically screened. la1 13:56 Data reviewed: vital signs, nurses notes. Counseling: I had a detailed discussion with la1 the patient and/or guardian regarding: the need for outpatient follow up, a family practitioner, a orthopedic surgeon, to return to the emergency department if symptoms worsen or persist or if there are any questions or concerns that arise at home. Refusal of service: The patient/guardian displays adequate decision making capability and despite a detailed discussion of alternatives, benefits, risks, and consequences refuses: all X-rays. ED course: after learning he would be getting an xray initially and not a CT scan pt asked of he could just have his prescription and leave, states he does not want an xray, attempted to explain risks of not receiving xray. Pt left from room following this discussion. 01/28 13:21 Order name: XRAY Thoracic Spine (W/swimmers) [facility] Administered Medications: 13:29 Not Given (Other Intervention Used): [place] (7.5 mg-325 mg) 1 tabs PO once; RASS on la1 ADMIN: Combtv4, Very Agttd3, Agttd2, Rstlss1, AlertClm0, Drwsy-1, Lt Sdtn-2, Mod Sdtn-3, Dp Sdtn-4, UnArsble-5 Disposition: 17:21 Co-signature as Attending Physician, Alex Whiteside MD I agree with the assessment and kdr plan of care. Disposition: 01/29/20 13:30 Discharged to Home. Impression: Thoracic back pain. - Condition is Stable. - Discharge Instructions: Back Pain, Adult, Back Pain, Adult, Deiq-da-Yblz. - Prescriptions for Ibuprofen 800 mg Oral Tablet - take 1 tablet by ORAL route every 8 hours As needed take with food; 30 tablet. - Medication Reconciliation Form, Thank You Letter form. - Follow up: Private Physician; When: As needed; Reason: Recheck today's complaints, Re-evaluation by your physician. - Problem is new. - Symptoms are unchanged. Signatures: Dispatcher [employer] EDMS Alex Whiteside MD MD [facility] Shade Veras, CRIMINAL LEGAL ASSISTANT-C CRIMINAL LEGAL ASSISTANT-Cla1 Óscar Ray, RN RN jl7 Corrections: (The following items were deleted from the chart) 13:43 13:30 01/29/2020 13:30 Discharged to Home. Impression: Thoracic back pain. Condition is jl7 Stable. Forms are Medication Reconciliation Form, Thank You Letter, Antibiotic Education, Prescription Opioid Use. Follow up: Private Physician; When: As needed; Reason: Recheck today's complaints, Re-evaluation by your physician. Problem is new. Symptoms are unchanged. la1
[2020-01-29 14:45] VITALS: BP 107/79; TEMP 98.2; O2SAT 98
== END 2020-01-29 13:43 | disposition home or self-care (01) ==
LOC: ER 12:43
DX: M54.6 Pain in thoracic spine (principal); W11.XXXA Fall on and from ladder, initial encounter; Y93.9 Activity, unspecified; Y92.9 Unspecified place or not applicable
CPT/HCPCS: 99281

== ENCOUNTER 2020-02-28 13:41 | Emergency (ER) | payer OTHER ==
--- OUTSIDE RECORDS SUMMARY | 2020-02-28 13:44 | XMS REPORT ---
:1960 Author Organization [facility] t Address [address] [place] [address] Dr. S[address]ey [address] [place] [address] Care Team Providers Name Role Phone UNKNOWN Primary Care Provider Unavailable LES SANCHEZ M.D. Unavailable Unavailable Problems This patient has no known problems. Allergies, Adverse Reactions, Alerts This patient has no known allergies or adverse reactions. Medications This patient has no known medications. Results Test Description Test Time Test Comments Text Results Atomic Results Result Comments RPR, Qual 2017-10-17 02:43:00 Test Item Value Reference Range Comments RPR (test code = RPR) Non-Reactive Non-Reactive Thyroid Stimulating Hormone (TSH)2017-10-16 23:39:00 Test Item Value Reference Range Comments TSH (test code = TSH) 0.80 mIU/mL 0.270-4.200 Lipid [id number] 23:31:00 Test Item Value Reference Range Comments Cholesterol (test code = 156 mg/dL 0-200 CHOL) Triglycerides (test code = 208 mg/dL 9-200 TRIG) HDL (test code = HDL) 38 mg/dL 40-60 Chol/HDL (test code = 4.1 Ratio 0.0-5.0 CHOLPHDL) LDL, Calculated (test code 76 0-130 (NOTE )RISK OF HEART = LDLC) DISEASEPublished by [place] Heart Associatio nAnalyte Optimal Boderline Increased RiskCHOL <200 20 0-239 >240TRIG <150 150-199 >200HDL Male: >60 <40HDL Female: &g t;60 <50LDL <100 130-159 >1 60LDL NEAR O PTIMAL IS 100-129 VLDL (test code = VLDL) 42 mg/dL 5-40 LDL/HDL (test code = 2 LDLPHDL) Alcohol/Ethanol, [id number] 16:53:00 Test Item Value Reference Range Comments Alcohol, Ethyl (test code <0.01 g/dL 0.00-0.01 Intoxi cated 0.080 g/dL or = ETOH) more Comprehensive Metabolic [id number] 16:53:00 Test Item Value Reference Range Comments Sodium (test code = NA) 139 mmol/L 135-145 Potassium (test code = 3.9 mmol/L 3.5-5.1 K) Chloride (test code = 101 mmol/L 98-105 CL) Carbon Dioxide (test 29 mmol/L 22-29 code = CO2) Glucose (test code = 90 mg/dL 70-115 GLU) Blood Urea Nitrogen 7 mg/dL 6-20 (test code = BUN) Creatinine (test code = 0.9 mg/dL 0.7-1.2 CREAT) Calcium (test code = CA) 9.2 mg/dL 8.3-10.5 Prot Total (test code = 6.5 g/dL 6.4-8.3 TP) Albumin (test code = 4.0 g/dL 3.5-5.2 ALB) A/G Ratio (test code = 1.6 Ratio AGRATIO) Globulin (test code = 2.5 2.9-3.1 GLOB) Bili Total (test code = 0.4 mg/dL 0.1-0.9 TBIL) Alk Phos (test code = 67 U/L 40-129 APHOS) AST (test code = AST) 36 U/L 1-40 ALT (test code = ALT) 47 U/L 1-41 BUN/Creatinine Ratio 7.8 (test code = BCRATIO) Anion Gap (test code = 9 mmol/L 7-16 AGAP) Estimated GFR (test code >60 mL/min/1.73m2 eGFR (estimated Glomerular = GFR) Filtration Rate) is an estimated value, calculated from the patient 's serum creatinine using the MDRD equation.It is N OT the patient's actual GFR. The eGFR provides a more clinicallyuseful measure of kidney disease t her serum creatinine alone .This calculation take s sex and race into accoun t, if the informationis pr ovided. If the race is not provided, and the patient isAfrican-Americ an, multiply by 1.21 2. If sex is not provided, and thepatient is fe male, multiply by 0.74 2. Results for patients <18 years ofage have not b een validated by the MDRD study and should be interpretedwith caution.eGFR Res ult Interpretation:e GFR > or = 60 is in the Nor mal RangeeGFR < 60 m ay mean kidney diseaseeG FR < 15 may mean kidney failureRanges recommended by jimmie hill National Kidney Foundation,http: //nkdep.nih .gov [id number] 16:53:00 Test Item Value Reference Range Comments Amphetamine (test code = AMPH) Negative Negative F or diagnostic purposes only, positive results should always be assessedin co njunctionwith the patient's me dical history,clinical examination and otherfinding s.To fulfill legal requiremen ts, a more specific alterna te chemical methodmust be us ed inorder to obtain a Confirm ed analytical result. GC/MS is the preferred confirmatory met hod. Barbiturates (test code = Negative Negative ROSS) Benzodiazepine (test code = Negative Negative ALYSSA) Cocaine (test code = COCA) POSITIVE Negative Methadone (test code = MTHD) Negative Negative Opiates (test code = OPIA) Negative Negative PCP (test code = PCP) Negative Negative Propoxyphene (test code = Negative Negative PROPOX) THC (test code = THC) POSITIVE Negative CBC with [id number] 16:40:00 Test Item Value Reference Range Comments WBC (test code = WBC) 7.8 K/cumm 4.4-10.5 RBC (test code = RBC) 4.82 M/cumm 4.10-5.70 Hemoglobin (test code = HGB) 15.5 gm/dL 13.4-17.4 Hematocrit (test code = HCT) 44.0 % 38.7-52.0 MCV (test code = MCV) 91.3 fL 80-100 MCH (test code = MCH) 32.2 pg 27.0-32.5 MCHC (test code = MCHC) 35.2 g/dL 32.0-37.5 RDW (test code = RDW) 12.0 % 11.5-14.5 Platelet Count (test code = PLTCT) 219 K/cumm 140-440 MPV (test code = MPV) 9.6 fL Diff Method (test code = DIFFM) Auto Neutrophil (test code = NEUT) 44.1 % 36-70 Lymphocyte (test code = LYMPH) 45.4 % 12-44 Monocyte (test code = MONO) 6.3 % 0-11 Eosinophil (test code = EOS) 3.6 % 0-7 Basophil (test code = BASO) 0.7 % 0-2 Neutro Abs (test code = ANEUT) 3.5 K/cumm 1.6-7.4 Lymph Abs (test code = ALYMPH) 3.5 K/cumm 0.5-4.6 [place] Abs (test code = AMONO) 0.5 K/cumm 0.0-1.2 Eos Abs (test code = AEOS) 0.28 K/cumm 0.00-0.74 Baso Abs (test code = ABASO) 0.1 K/cumm 0.00-0.21 Urinalysis [id number] 16:30:00 Test Item Value Reference Range Comments Color (test code = COLOR) Yellow Yellow,Straw,Pl yellow Clarity (test code = CLAR) Clear Clear Specific [place] (test code = SPGR) 1.008 1.001-1.035 pH (test code = PH) 6.5 5.0-9.0 Ketone (test code = KET) Negative mg/dL Negative Glucose (test code = GLUCUR) Negative mg/dL Negative Protein (test code = PROT) Negative mg/dL Negative Bilirubin (test code = BILI) Negative mg/dL Negative Occult Blood (test code = UDOB) Negative Negative Urobilinogen (test code = UROB) 0.2 mg/dL 0.2-1.0 Nitrite (test code = NIT) Negative Negative Leuk Esterase (test code = LEUK) Negative Negative Micros Exam (test code = MEXAM) Not indicated
[2020-02-28 14:43] LABS: Hematocrit 44.2 % (39.6-49.0); MPV 7.9 fL (7.6-11.3); RBC Red Blood Cell Count 4.94 M/uL (4.33-5.43)
[2020-02-28 14:43] LABS: Urine Blood NEGATIVE (NEG); Urine Glucose NEGATIVE (NEG); Urine Protein NEGATIVE (NEG); Urine pH 5.5 (5.0-7.0)
[2020-02-28 14:46] LABS: Protime INR 1.16
[2020-02-28 14:51] LABS: Barbiturates NEGATIVE (NEGATIVE); Benzodiazepines NEGATIVE (NEGATIVE); Cocaine NEGATIVE (NEGATIVE); METHAMPHETAM POSITIVE (NEGATIVE); Methadone NEGATIVE (NEGATIVE); Opiates NEGATIVE (NEGATIVE); Phencyclidine NEGATIVE (NEGATIVE); THC Cannibis POSITIVE (NEGATIVE)
[2020-02-28 14:59] LABS: ALT/SGPT 64 U/L (12-78); AST/SGOT 39 U/L (15-37); Albumin 3.3 g/dL (3.4-5.0); Alkaline Phosphatase 92 U/L (45-117); BUN Blood Urea Nitrogen 5 mg/dL (7-18); Bicarbonate 23 mmol/L (21-32); Bilirubin Direct 0.1 mg/dL (0-0.2); Bilirubin Total 0.3 mg/dL (0.2-1.0); Glucose Level 104 mg/dL (74-106); Potassium 3.4 mmol/L (3.5-5.1); Protein, Total 7.2 g/dL (6.4-8.2); Sodium Level 135 mmol/L (136-145)
--- NOTE | 2020-02-28 16:23 | EDPHYS ---
Physician Documentation [facility] [place] [place] Name: Hi Chandlre Age: 59 yrs Sex: Male : 1960 Arrival Date: 02/28/2020 Time: 13:52 Bed 16 Private MD: ED Physician Alex Whiteside HPI: 02/27 16:23 This 59 yrs old Male presents to ER via EMS with complaints of Psych Problem. kdr 16:23 The patient presents to the emergency department with psychosis, has experienced kdr auditory hallucinations, voices are telling patient to commit sucide, suicide ideation, and the patient has a plan, to hang oneself. Onset: The symptoms/episode began/occurred gradually, 1 week(s) ago. Past psychiatric history: Prior diagnosis: schizophrenia, Psychiatric medications include: Invega. Associated signs and symptoms: Pertinent positives; hallucinations, suicide ideation. Severity of symptoms: At their worst the symptoms were mild in the emergency department the symptoms are unchanged. The patient has experienced similar episodes in the past, multiple times. The patient has not recently seen a physician. Historical: - Allergies: 14:06 Ativan; - Home Meds: 14:06 Invega Oral [Active]; - PMHx: 14:06 Bipolar disorder; Schizophrenia; hypotension; - PSHx: 14:06 None; - Immunization history:: Adult Immunizations not up to date. - Social history:: Smoking status: Patient reports the use of cigarette tobacco products, smokes one pack cigarettes per day. Patient uses alcohol, occasionally. street drugs, marijuana. ROS: 16:23 Constitutional: Negative for fever, chills, and weight loss, Eyes: Negative for injury, kdr pain, redness, and discharge, ENT: Negative for injury, pain, and discharge, Neck: Negative for injury, pain, and swelling, Cardiovascular: Negative for chest pain, palpitations, and edema, Respiratory: Negative for shortness of breath, cough, wheezing, and pleuritic chest pain, Abdomen/GI: Negative for abdominal pain, nausea, vomiting, diarrhea, and constipation, Back: Negative for injury and pain, : Negative for injury, bleeding, discharge, and swelling, MS/Extremity: Negative for injury and deformity, Skin: Negative for injury, rash, and discoloration, Neuro: Negative for headache, weakness, numbness, tingling, and seizure activity. Allergy/Immunology: Negative for hives, rash, and allergies, Endocrine: Negative for neck swelling, polydipsia, polyuria, polyphagia, and marked weight changes, Hematologic/Lymphatic: Negative for swollen nodes, abnormal bleeding, and unusual bruising. 16:23 Psych: Positive for auditory hallucinations, suicidal ideation. Exam: 16:23 Constitutional: This is a well developed, well nourished patient who is awake, alert, kdr and in no acute distress. Head/Face: Normocephalic, atraumatic. Eyes: Pupils equal round and reactive to light, extra-ocular motions intact. Lids and lashes normal. Conjunctiva and sclera are non-icteric and not injected. Cornea within normal limits. Periorbital areas with no swelling, redness, or edema. Neck: Trachea midline, no thyromegaly or masses palpated, and no cervical lymphadenopathy. Supple, full range of motion without nuchal rigidity, or vertebral point tenderness. No Meningismus. Chest/axilla: Normal chest wall appearance and motion. Nontender with no deformity. No lesions are appreciated. Cardiovascular: Regular rate and rhythm with a normal S1 and S2. No gallops, murmurs, or rubs. Normal PMI, no JVD. No pulse deficits. Respiratory: Lungs have equal breath sounds bilaterally, clear to auscultation and percussion. No rales, rhonchi or wheezes noted. No increased work of breathing, no retractions or nasal flaring. Abdomen/GI: Soft, non-tender, with normal bowel sounds. No distension or tympany. No guarding or rebound. No evidence of tenderness throughout. Back: No spinal tenderness. No costovertebral tenderness. Full range of motion. Skin: Warm, dry with normal turgor. Normal color with no rashes, no lesions, and no evidence of cellulitis. MS/ Extremity: Pulses equal, no cyanosis. Neurovascular intact. Full, normal range of motion. Neuro: Awake and alert, GCS 15, oriented to person, place, time, and situation. Cranial nerves II-XII grossly intact. Motor strength 5/5 in all extremities. Sensory grossly intact. Cerebellar exam normal. Normal gait. Psych: Awake, alert, with orientation to person, place and time. Behavior, mood, and affect are within normal limits. Vital Signs: 13:40 BP 103 / 62; Pulse 102; Resp 16; Temp 97.2; Pulse Ox 97% ; Weight 77.11 kg; Height 5 ah ft. 10 in. (177.80 cm); 14:25 BP 93 / 70 Sitting; Pulse 98; jb1 14:25 BP 122 / 89 Supine; Pulse 94; jb1 14:25 BP 93 / 75 Standing; Pulse 102; jb1 15:57 BP 102 / 77; Pulse 87; Resp 18; Pulse Ox 97% ; ah 13:40 Body Mass Index 24.39 (77.11 kg, 177.80 cm) MDM: 16:22 Patient medically screened. kdr 16:23 Data reviewed: vital signs, nurses notes, lab test result(s). Counseling: I had a kdr detailed discussion with the patient and/or guardian regarding: the historical points, exam findings, and any diagnostic results supporting the discharge/admit diagnosis, lab results, the need for outpatient follow up. 02/27 14:11 Order name: Acetaminophen [facility] 02/27 14:11 Order name: Basic Metabolic Panel; Complete Time: 15:09 kdr 02/27 14:11 Order name: CBC with Diff; Complete Time: 14:59 kdr 02/27 14:11 Order name: ETOH Level; Complete Time: 15:15 kdr 02/27 14:11 Order name: Hepatic Function; Complete Time: 15:09 kdr 02/27 14:11 Order name: PT-INR; Complete Time: 16:12 kdr 02/27 14:11 Order name: Ptt, Activated; Complete Time: 16:12 kdr 02/27 14:11 Order name: Salicylate; Complete Time: 15:15 kdr 02/27 14:11 Order name: Urine Drug Screen; Complete Time: 14:59 kdr 02/27 14:11 Order name: IV Saline Lock; Complete Time: 15:05 kdr 02/27 14:11 Order name: Labs collected and sent; Complete Time: 15:05 kdr 02/27 14:12 Order name: Acetaminophen Level; Complete Time: 15:09 EDMS 02/27 14:38 Order name: Urine Dipstick--Ancillary (enter results); Complete Time: 14:59 eb 02/27 15:12 Order name: Diet Finger Food: PSYCH; Complete Time: 15:12 ss 02/27 14:11 Order name: Urine Dipstick-Ancillary (obtain specimen); Complete Time: 15:05 kdr 02/27 14:11 Order name: Orthostatic Blood Pressure; Complete Time: 14:14 kdr Administered Medications: No medications were administered Disposition: 02/28/20 16:22 Transfer ordered to Psych Facility. Diagnosis are Schizophrenia, Suicidal ideations. - Reason for transfer: Higher level of care. - Accepting physician is Dr. Perez. - Condition is Stable. - Problem is an acute exacerbation. - Symptoms have improved. Signatures: Dispatcher [employer] EDFL Alex Whiteside MD MD [facility] Maribel Ruiz RN RN Cora Puente RN RN Corrections: (The following items were deleted from the chart) 18:22 16:22 02/28/2020 16:22 Transfer ordered to Psych Facility. Diagnosis is Schizophrenia; ss Suicidal ideations. Reason for transfer: Higher level of care. Accepting physician is Dr. Perez. Condition is Stable. Problem is an acute exacerbation. Symptoms have improved. kdr
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
[2020-02-28 18:36] VITALS: BP 102/77; O2SAT 97
== END 2020-02-28 18:22 ==
LOC: ER 13:41
DX: F20.9 Schizophrenia, unspecified (principal); R45.851 Suicidal ideations; F31.9 Bipolar disorder, unspecified; F17.210 Nicotine dependence, cigarettes, uncomplicated; Z79.899 Other long term (current) drug therapy
CPT/HCPCS: 36415; 80048; 80076; 80307; 80320; 80329; 81003; 85025; 85610; 85730; 99284

== ENCOUNTER 2020-03-25 20:11 | Emergency (ER) | payer OTHER ==
--- OUTSIDE RECORDS SUMMARY | 2020-03-25 20:13 | XMS REPORT ---
:1960 Author Organization [facility] t Address [address] [place] [address] [address]. S[address] [place] [address] Care Team Providers Name Role Phone UNKNOWN [...] code = TSH) 0.80 mIU/mL 0.270-4.200 Lipid [id number] 23:31:00 Test Item Value Reference Range Comments Cholesterol (test code = 156 mg/dL 0-200 CHOL) Triglycerides (test code = 208 mg/dL 9-200 TRIG) HDL (test code = HDL) 38 mg/dL 40-60 Chol/HDL (test code = 4.1 Ratio 0.0-5.0 CHOLPHDL) LDL, Calculated (test code 76 0-130 (NOTE )RISK OF HEART = LDLC) DISEASEPublished by [employer] Heart Associatio nAnalyte Optimal Boderline Increased RiskCHOL <200 20 0-239 >240TRIG <150 150-199 >200HDL Male: >60 <40HDL Female: &g t;60 <50LDL <100 130-159 >1 60LDL NEAR O PTIMAL IS 100-129 VLDL (test code = VLDL) 42 mg/dL 5-40 LDL/HDL (test code = 2 LDLPHDL) Alcohol/Ethanol, [id number] 16:53:00 Test Item Value Reference Range Comments Alcohol, Ethyl (test code <0.01 g/dL 0.00-0.01 Intoxi cated 0.080 g/dL or = ETOH) more Comprehensive Metabolic [id number] 16:53:00 Test Item Value Reference Range Comments [...] jimmie hill [employer],http: //nkdep.nih .gov [id number] 16:53:00 Test Item Value Reference Range Comments [...] code = THC) POSITIVE Negative CBC with [id number] 16:40:00 Test Item Value Reference Range Comments [...] (test code = ALYMPH) 3.5 K/cumm 0.5-4.6 [place] Abs (test code = AMONO) 0.5 K/cumm 0.0-1.2 Eos Abs (test code = AEOS) 0.28 K/cumm 0.00-0.74 Baso Abs (test code = ABASO) 0.1 K/cumm 0.00-0.21 Urinalysis [id number] 16:30:00 Test Item Value Reference Range Comments Color (test code = COLOR) Yellow Yellow,Straw,Pl yellow Clarity (test code = CLAR) Clear Clear Specific [place] (test code = SPGR) 1.008 1.001-1.035 pH [...]
[2020-03-25] MEDS ORDERED: LIDOCAINE 1% MPF 5 ML VIAL ONE (20:53)
--- NOTE | 2020-03-25 21:05 | EDPHYS ---
Physician Documentation [facility] Name: Hi Chandler Age: 59 yrs Sex: Male : 1960 Arrival Date: 03/25/2020 Time: 20:15 Bed 23 Private MD: ED Physician Cristobal Mercer HPI: 03/25 20:25 This 59 yrs old Male presents to ER via EMS with complaints of abscess. rn 20:25 The patient presents with an abscess of the back. Description: erythematous, swollen. rn Onset: The symptoms/episode began/occurred 2 week(s) ago. Possible cause(s): unknown. Modifying factors: the symptoms are alleviated by squeezing the lesion and expressing the contents, the symptoms are aggravated by touching. Severity of symptoms: At their worst the symptoms were mild, in the emergency department the symptoms have improved. The patient has experienced similar episodes in the past. Reports noticed small spot on right upper back/shoulder blade 2 weeks ago, growing, has been messing with it, picking and squeezing, has had drainage but doesn't feel like has gotten all of it out. no fever. Here to get it cut and drained like before.. Historical: - Allergies: 20:23 Ativan; mg2 - PMHx: 20:23 Bipolar disorder; hypotension; Schizophrenia; mg2 - Immunization history:: Last tetanus immunization: not immunized Flu vaccine is not up to date. - Social history:: Smoking status: Patient reports the use of cigarette tobacco products, smokes one pack cigarettes per day. Patient/guardian denies using alcohol, street drugs, IV drugs. - Family history:: not pertinent. - Hospitalizations: : No recent hospitalization is reported. ROS: 20:25 Constitutional: Negative for fever, chills, and weight loss, Skin: + abscess right rn shoulder/back Exam: 20:25 Constitutional: This is a well developed, well nourished patient who is awake, alert, rn and in no acute distress. Skin: Warm, dry, 2cm area of mild fluctuance and erythema/warmth right upper back superior to shoulderblade, some expressed purulence. Vital Signs: 20:20 BP 126 / 78; Pulse 90; Resp 18; Temp 98.3; Pulse Ox 97% on R/A; Weight 78.02 kg; Height mg2 5 ft. 8 in. (172.72 cm); 21:29 BP 126 / 74; Pulse 80; Resp 18; Temp 98.5; Pulse Ox 100% on R/A; mg2 20:20 Body Mass Index 26.15 (78.02 kg, 172.72 cm) mg2 Procedures: 21:04 I \T\ D: Incision and drainage was performed for an abscess of the right upper back rn Prepped with Betadine, Anesthetized with 3 ml's 1% Lidocaine. Incised with #11 blade. Drained small amount purulent fluid. serosanguinous fluid. Packed with iodoform gauze, Dressing: sterile 4x4 gauze, the patient tolerated the procedure well. MDM: 20:20 Patient medically screened. rn 21:04 Differential diagnosis: abscess, cellulitis. Data reviewed: vital signs, nurses notes, rn and as a result, I will discharge patient. Counseling: I had a detailed discussion with the patient and/or guardian regarding: the historical points, exam findings, and any diagnostic results supporting the discharge/admit diagnosis, the need for outpatient follow up, to return to the emergency department if symptoms worsen or persist or if there are any questions or concerns that arise at home. Response to treatment: the patient's symptoms have mildly improved after treatment, and as a result, I will discharge patient. Special discussion: I discussed with the patient/guardian in detail that at this point there is no indication for admission to the hospital. It is understood, however, that if the symptoms persist or worsen the patient needs to return immediately for re-evaluation. 03/25 20:24 Order name: Wound Culture rn 03/25 20:24 Order name: Incision \T\ Drainage Setup; Complete Time: 20:59 rn Administered Medications: 20:59 Drug: Lidocaine (1 %) 1 vials {Note: administered by the provider.} Volume: 5 ml; mg2 Route: Infiltration; 21:29 Follow up: Response: No adverse reaction mg2 Disposition: 03/25/20 21:05 Discharged to Home. Impression: Cutaneous abscess of back [any part, except buttock]. - Condition is Stable. - Discharge Instructions: Skin Abscess, Incision and Drainage, Incision and Drainage, Care After. - Prescriptions for Clindamycin HCl 300 mg Oral Capsule - take 1 capsule by ORAL route every 6 hours for 10 days; 40 capsule. - Medication Reconciliation Form, Thank You Letter, Antibiotic Education, Prescription Opioid Use form. - Follow up: Private Physician; When: As needed; Reason: Recheck today's complaints, Re-evaluation by your physician. - Problem is new. - Symptoms have improved. Signatures: Dispatcher [employer] EDCristobal Adame MD MD rn Gardose, Michele, RN RN mg2 Corrections: (The following items were deleted from the chart) 21:31 21:05 03/25/2020 21:05 Discharged to Home. Impression: Cutaneous abscess of back [any mg2 part, except buttock]. Condition is Stable. Forms are Medication Reconciliation Form, Thank You Letter, Antibiotic Education, Prescription Opioid Use. Follow up: Private Physician; When: As needed; Reason: Recheck today's complaints, Re-evaluation by your physician. Problem is new. Symptoms have improved. rn
--- NOTE | 2020-03-25 21:05 | ER ---
Nurse's Notes [facility] Name: Hi Chandler Age: 59 yrs Sex: Male : 1960 Arrival Date: 03/25/2020 Time: 20:15 Bed 23 Private MD: Diagnosis: Cutaneous abscess of back [any part, except buttock] Presentation: 03/25 20:20 Chief complaint: EMS states: he came here for infected wound or abscess on his right mg2 upper back that started 2 weeks ago. denies fever and chills. Coronavirus screen: Proceed with normal triage. Patient denies a cough. Patient denies shortness of breath or difficulty breathing. Patient denies measured and/or subjective temperature greater than 100.4F prior to today's visit. Patient denies travel on a cruise ship or to a country the [facility] currently lists as an affected area. Patient denies contact with known and/or suspected case of COVID-19. Ebola Screen: No symptoms or risks identified at this time. Initial Sepsis Screen: Does the patient meet any 2 criteria? No. Patient's initial sepsis screen is negative. Does the patient have a suspected source of infection? No. Patient's initial sepsis screen is negative. Risk Assessment: Do you want to hurt yourself or someone else? Patient reports no desire to harm self or others. Onset of symptoms was March 2020. 20:20 Method Of Arrival: EMS: [facility] mg2 20:20 Acuity: CARMELO 3 mg2 Triage Assessment: 21:00 General: Behavior is calm, cooperative. mg2 Historical: - Allergies: 20:23 Ativan; mg2 - PMHx: 20:23 Bipolar disorder; hypotension; Schizophrenia; mg2 - Immunization history:: Last tetanus immunization: not immunized Flu vaccine is not up to date. - Social history:: Smoking status: Patient reports the use of cigarette tobacco products, smokes one pack cigarettes per day. Patient/guardian denies using alcohol, street drugs, IV drugs. - Family history:: not pertinent. - Hospitalizations: : No recent hospitalization is reported. Screenin:58 Abuse screen: Denies threats or abuse. Denies injuries from another. Nutritional mg2 screening: No deficits noted. Tuberculosis screening: No symptoms or risk factors identified. Fall Risk None identified. Assessment: 20:57 General: Appears in no apparent distress. comfortable. Pain: Denies pain. Neuro: Level mg2 of Consciousness is awake, alert, obeys commands, Oriented to person, place, time, situation. Cardiovascular: Capillary refill < 3 seconds Patient's skin is warm and dry. Respiratory: Airway is patent Respiratory effort is even, unlabored, Respiratory pattern is regular, symmetrical. GI: No signs and/or symptoms were reported involving the gastrointestinal system. : EENT: No signs and/or symptoms were reported regarding the EENT system. Derm: Abscess located on back is quarter sized, is red, is raised. Musculoskeletal: Circulation, motion, and sensation intact. Capillary refill < 3 seconds. Vital Signs: 20:20 BP 126 / 78; Pulse 90; Resp 18; Temp 98.3; Pulse Ox 97% on R/A; Weight 78.02 kg; Height mg2 5 ft. 8 in. (172.72 cm); 21:29 BP 126 / 74; Pulse 80; Resp 18; Temp 98.5; Pulse Ox 100% on R/A; mg2 20:20 Body Mass Index 26.15 (78.02 kg, 172.72 cm) mg2 ED Course: 20:15 Patient arrived in ED. mg2 20:20 Pravin Chou, YADIRA is Primary Nurse. mg2 20:20 Cristobal Mercer MD is Attending Physician. rn 20:22 Triage completed. mg2 20:22 Arm band placed on. mg2 20:58 Patient has correct armband on for positive identification. mg2 20:58 Assist provider with I \\T\\ D: of an abscess on right upper back Set up I\\T\\D tray. mg 2 Performed by Cristobal Mercer MD Culture sent to lab. Dressing with 4X4s, Patient tolerated well. Patient did not have IV access during this emergency room visit. Administered Medications: 20:59 Drug: Lidocaine (1 %) 1 vials {Note: administered by the provider.} Volume: 5 ml; mg2 Route: Infiltration; 21:29 Follow up: Response: No adverse reaction mg2 Outcome: 21:05 Discharge ordered by . rn 21:30 Discharged to home ambulatory. mg2 21:30 Condition: stable 21:30 Discharge instructions given to patient, Instructed on discharge instructions, follow up and referral plans. medication usage, Demonstrated understanding of instructions, follow-up care, medications, Prescriptions given X 1. 21:31 Patient left the ED. mg2 Addendum: 03/29/2020 10:44 Addendum: Culture Results: Positive wound culture. Bacteria is resistant to, has a a5 intermediate sensitivity, or is not tested against prescribed antibiotics. Report given to MISHA for further evaluation and then to commercial relationship manager for follow up with patient. Phone call Attempt #1 Spoke to pt's mother and mother states "the abscess is looking way better, is not even swollen anymore, I help him change his bandage". Symptoms have improved and instructed to continue Clindamycin per Rafita Barnes NP. Signatures: Cristobal Mercer MD MD rn Cailin Stein, RN RN aa5 Pravin Chou RN RN mg2 Corrections: (The following items were deleted from the chart) 03/26 00:11 03/25 20:00 General: Behavior is calm, cooperative, mg2 mg2
[2020-03-26 08:57] VITALS: BP 126/74; TEMP 98.5; O2SAT 100
== END 2020-03-25 21:31 | disposition home or self-care (01) ==
LOC: ER 20:11
PROC: 0J970ZZ Drainage of Back Subcutaneous Tissue and Fascia, Open Approach (ICD-10-PCS; principal; 2020-03-25)
DX: L02.212 Cutaneous abscess of back [any part, except buttock and flank] (principal); F17.210 Nicotine dependence, cigarettes, uncomplicated; I95.9 Hypotension, unspecified; Z88.8 Allergy status to other drugs, medicaments and biological substances
CPT/HCPCS: 87070; 87077; 87186; 87205; 99284

== ENCOUNTER 2020-08-24 14:45 | Emergency (ER) | payer OTHER ==
[2020-08-24] MEDS ORDERED: LIDOCAINE 1% W/EPI 1:100,000 MDV 20 ML VIAL ONE (15:04)
[2020-08-24] MEDS ORDERED: ACETAMINOPHEN 325 MG TABLET ONE (15:04)
[2020-08-24] MEDS ORDERED: TETANUS & DIPHTHERIA TOX,ADULT 0.5 ML VIAL ONE (15:04)
--- NOTE | 2020-08-24 15:15 | RAD REPORT ---
EXAM DESCRIPTION: CT - Head Brain Wo Cont - 08/24/2020 3:05 pm CLINICAL HISTORY: Headache;Trauma COMPARISON: No comparisons TECHNIQUE: Axial 5 mm thick images of the head were obtained without IV contrast. All CT scans are performed using dose optimization technique as appropriate and may include automated exposure control or mA/KV adjustment according to patient size. FINDINGS: No intracranial hemorrhage, mass, edema or shift of mid-line structures. No acute infarcti on changes seen. No abnormal extra-axial fluid collections. Ventricles are normal. Mastoid air cells and visualized portions of the paranasal sinuses are clear. No acute bony findings. IMPRESSION: Negative non-contrast CT head examination for acute or significant finding.
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
--- NOTE | 2020-08-24 16:02 | EDPHYS ---
Physician Documentation [facility] Name: Hi Chandler Age: 59 yrs Sex: Male : 1960 Arrival Date: 08/24/2020 Time: 14:46 Bed 14 Private MD: ED Physician Cristobal Mercer HPI: 08/24 14:48 This 59 yrs old Male presents to ER via Unassigned with complaints of cp Laceration To Head. 14:48 The patient has a laceration related to: fighting, "cane". The laceration(s) is(are) cp located on the frontal scalp. Onset: The symptoms/episode began/occurred just prior to arrival. Associated signs and symptoms: Pertinent positives: laceration, Pertinent negatives: heavy bleeding, loss of consciousness. Historical: - Allergies: 14:49 Ativan; sv - PMHx: 14:49 Bipolar disorder; hypotension; Schizophrenia; sv - Immunization history:: Adult Immunizations. - Social history:: Smoking status: . ROS: 14:49 Constitutional: Negative for fever. cp 14:49 Cardiovascular: Negative for chest pain. 14:49 Respiratory: Negative for cough, shortness of breath, wheezing. 14:49 Abdomen/GI: Negative for abdominal pain, nausea, vomiting, diarrhea, constipation. 14:49 Skin: Positive for laceration(s), of the frontal scalp. 14:49 Neuro: Positive for headache, Negative for altered mental status, loss of consciousness. 14:49 All other systems are negative. Exam: 14:55 Constitutional: The patient appears in no acute distress, alert, awake, well developed, cp well nourished. 14:55 Head/face: Noted is a laceration(s), that is deep, that is linear, of the frontal cp scalp, Sinus tenderness, is not appreciated. 14:55 Eyes: Periorbital structures: appear normal, Pupils: equal, round, and reactive to light and accomodation, Extraocular movements: intact throughout, Lids and lashes: appear normal, bilaterally. 14:55 ENT: External ear(s): are unremarkable, Nose: is normal, Mouth: is normal, Posterior pharynx: Airway: no evidence of obstruction, patent. 14:55 Neck: C-spine: vertebral tenderness, is not appreciated, crepitus, is not appreciated, ROM/movement: is normal, is supple, without pain, no range of motions limitations. 14:55 Chest/axilla: Inspection: normal, Palpation: is normal, no crepitus, no tenderness. cp 14:55 Cardiovascular: Rate: normal. 14:55 Respiratory: the patient does not display signs of respiratory distress, Respirations: normal. 14:55 Abdomen/GI: Inspection: abdomen appears normal, Palpation: abdomen is soft and non-tender, in all quadrants. 14:55 Back: pain, is absent, ROM is normal. 14:55 Neuro: Orientation: to person, place \\T\\ time. Mentation: is normal, Cerebellar function: is grossly normal, Motor: moves all fours, strength is normal, Gait: is steady. Vital Signs: 14:50 BP 111 / 88; Pulse 76; Temp 98.3; Pulse Ox 97% on R/A; Weight 79.38 kg (R); Height 5 jp3 ft. 10 in. (177.80 cm) (R); Pain 8/10; 14:50 Body Mass Index 25.11 (79.38 kg, 177.80 cm) jp3 Laceration: 16:00 Wound Repair of 3.5cm ( 1.4in ) subcutaneous laceration to frontal scalp. Linear cp shaped.. Distal neuro/vascular/tendon intact. Anesthesia: Wound infiltrated with 7 mls of 1% lidocaine w/ Epi. Wound prep: Moderate cleansing by nurse. Skin closed with 7 5-0 Prolene using simple sutures and sterile technique. Dressed with Bacitracin, 4x4's. Patient tolerated well. MDM: 14:51 Patient medically screened. cp 16:00 Data reviewed: vital signs, nurses notes, radiologic studies, CT scan. cp 16:00 Differential diagnosis: superficial laceration, intracranial bleed, multiple trauma, cp skull fracture. Counseling: I had a detailed discussion with the patient and/or guardian regarding: the historical points, exam findings, and any diagnostic results supporting the discharge/admit diagnosis, radiology results, to return to the emergency department if symptoms worsen or persist or if there are any questions or concerns that arise at home. Response to treatment: the patient's symptoms have markedly improved after treatment. Special discussion: Based on the patient's history, exam and DX evaluation, there is no indication for emergent intervention or inpatient TX. It is understood by the patient/guardian that if the SXs persist or worsen they need to return immediately for re-evaluation. 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 Exp: sv 01/21/2023. Lot #: [id number]. } Route: IM; Site: right deltoid; 16:08 Follow up: Response: No adverse reaction sv 14:57 Drug: Tylenol 650 mg Route: PO; sv 16:09 Follow up: Response: No adverse reaction sv 15:50 Drug: Lidocaine-Epinephrine -1%: (1:100,000) 10 ml {Note: given to Ricardo LANCE for sv procedure.} Volume: 20 ml; Route: Infiltration; Disposition: 16:15 Chart complete. cp 18:23 Co-signature as Attending Physician, Cristobal Mercer MD. rn Disposition: 08/24/20 16:01 Discharged to Home. Impression: Laceration without foreign body of scalp. - Condition is Stable. - Discharge Instructions: Head Injury, Adult, Laceration Care, Adult. - Medication Reconciliation Form, Thank You Letter, Antibiotic Education, Prescription Opioid Use form. - Follow up: Private Physician; When: 1 week; Reason: Staple/Suture removal. - Problem is new. - Symptoms have improved. Signatures: Dispatcher [employer] Mercedes Lozano RN RN sv Nieto, Roman, MD MD rn Page, Corey, PA PA cp Corrections: (The following items were deleted from the chart) 16:10 16:01 08/24/2020 16:01 Discharged to Home. Impression: Laceration without foreign body sv of scalp. Condition is Stable. Forms are Medication Reconciliation Form, Thank You Letter, Antibiotic Education, Prescription Opioid Use. Follow up: Private Physician; When: 1 week; Reason: Staple/Suture removal. Problem is new. Symptoms have improved. cp
[2020-08-24 16:14] VITALS: BP 111/88; TEMP 98.3; O2SAT 97
--- OUTSIDE RECORDS SUMMARY | 2020-08-26 15:49 | XMS REPORT | Continuity of Care Document ---
:1960 Author Organization [facility] t Address [address] [place] [address] Care Team Providers Name Role Phone UNKNOWN Primary Care Physician Unavailable LES SANCHEZ M.D. Attending Clinician Unavailable LES SANCHEZ M.D. Admitting Clinician Unavailable Problems This patient has no known problems. Allergies, Adverse Reactions, Alerts This patient has no known allergies or adverse reactions. Medications This patient has no known medications. Procedures This patient has no known procedures. Results Test Description Test Time Test Comments Results Result Comments Source RPR, Qual 2017-10-17 02:43:00 Test Item Value Reference Range Interpretation Comme nts RPR (test code = RPR) Non-Reactive Non-Reactive N Thyroid Stimulating Hormone (TSH)2017-10-16 23:39:00 Test Item Value Reference Range Interpretation Comments TSH (test code = TSH) 0.80 mIU/mL 0.270-4.200 N Lipid [id number] 23:31:00 Test Item Value Reference Range Interpretation Comments Cholesterol (test 156 mg/dL 0-200 N code = CHOL) Triglycerides (test 208 mg/dL 9-200 H code = TRIG) HDL (test code = 38 mg/dL 40-60 L HDL) Chol/HDL (test code 4.1 Ratio 0.0-5.0 N = CHOLPHDL) LDL, Calculated 76 0-130 N (NOTE)RISK O F HEART (test code = LDLC) DISEASEPu blished by [place] Heart AssociationAnal yte Optim al Boderline Increased RiskC HOL <200 200-239 >240TRI G <150 150-199 >200HDL Male: >60 <40HDL Female: >60 <50 LDL < 100 130-15 9 >160 LDL NEAR OPTIMAL IS 100- 129 VLDL (test code = 42 mg/dL 5-40 H VLDL) LDL/HDL (test code = 2 LDLPHDL) Alcohol/Ethanol, [id number] 16:53:00 Test Item Value Reference Range Interpretation Comments Alcohol, Ethyl <0.01 g/dL 0.00-0.01 N Intoxicated 0.080 (test code = ETOH) g/dL or m ore Comprehensive Metabolic [id number] 16:53:00 Test Item Value Reference Range Interpretation Comments Sodium (test code = 139 mmol/L 135-145 N NA) Potassium (test 3.9 mmol/L 3.5-5.1 N code = K) Chloride (test code 101 mmol/L 98-105 N = CL) Carbon Dioxide 29 mmol/L 22-29 N (test code = CO2) Glucose (test code 90 mg/dL 70-115 N = GLU) Blood Urea Nitrogen 7 mg/dL 6-20 N (test code = BUN) Creatinine (test 0.9 mg/dL 0.7-1.2 N code = CREAT) Calcium (test code 9.2 mg/dL 8.3-10.5 N = CA) Prot Total (test 6.5 g/dL 6.4-8.3 N code = TP) Albumin (test code 4.0 g/dL 3.5-5.2 N = ALB) A/G Ratio (test 1.6 Ratio code = AGRATIO) Globulin (test code 2.5 2.9-3.1 L = GLOB) Bili Total (test 0.4 mg/dL 0.1-0.9 N code = TBIL) Alk Phos (test code 67 U/L 40-129 N = APHOS) AST (test code = 36 U/L 1-40 N AST) ALT (test code = 47 U/L 1-41 H ALT) BUN/Creatinine 7.8 Ratio (test code = BCRATIO) Anion Gap (test 9 mmol/L 7-16 N code = AGAP) Estimated GFR (test >60 eGFR (es timated code = GFR) mL/min/1.73m2 Glomerular Girish tration Rate) is an est imated value,calculate d from the patient's s tatiana creatinine usin g the MDRD equation.I t is NOT the patient 's actual GFR. The eGFR provides a more clinicallyusefu l measure of kidn ey disease than se rum creatinine alone.This calculation aliya es sex and race into account, if the informationis provided. If th e race is not provided , and the patient isAfrican-Ammercy can, multiply by 1.2 12. If sex is not prov ided, and thepatient is female, multipl y by 0.742. Results for patients <18 ye ars ofage have not been validated by th e MDRD study and shoul d be interpretedwith caution.eGFR Re sult Interpretation: eGFR > or = 60 is in t he Normal RangeeGF R < 60 may mean kidney diseaseeGFR < 1 5 may mean kidney failureRange s recommended by the National Kidney Foundation,http ://nkd ep.nih.gov [id number] 16:53:00 Test Item Value Reference Range Interpretation Comments Amphetamine (test code Negative Negative N For d iagnostic purposes = AMPH) only, positive results should always b e assessedin conjunctionwith the patient's medic al history,clinica l examination and otherfindings.T o fulfill legal requirements, a more specific altern ate chemical method must be used inorder to obtain a Confirmed jonatan lytical result. GC/MS i s the preferred confi rmatory method. Barbiturates (test Negative Negative N code = ROSS) Benzodiazepine (test Negative Negative N code = ALYSSA) Cocaine (test code = POSITIVE Negative A COCA) Methadone (test code = Negative Negative N MTHD) Opiates (test code = Negative Negative N OPIA) PCP (test code = PCP) Negative Negative N Propoxyphene (test Negative Negative N code = PROPOX) THC (test code = THC) POSITIVE Negative A CBC with [id number] 16:40:00 Test Item Value Reference Range Interpretation Comments WBC (test code = WBC) 7.8 K/cumm 4.4-10.5 N RBC (test code = RBC) 4.82 M/cumm 4.10-5.70 N Hemoglobin (test code = HGB) 15.5 gm/dL 13.4-17.4 N Hematocrit (test code = HCT) 44.0 % 38.7-52.0 N MCV (test code = MCV) 91.3 fL 80-100 N MCH (test code = MCH) 32.2 pg 27.0-32.5 N MCHC (test code = MCHC) 35.2 g/dL 32.0-37.5 N RDW (test code = RDW) 12.0 % 11.5-14.5 N Platelet Count (test code = 219 K/cumm 140-440 N PLTCT) MPV (test code = MPV) 9.6 fL Diff Method (test code = DIFFM) Auto Neutrophil (test code = NEUT) 44.1 % 36-70 N Lymphocyte (test code = LYMPH) 45.4 % 12-44 H Monocyte (test code = MONO) 6.3 % 0-11 N Eosinophil (test code = EOS) 3.6 % 0-7 N Basophil (test code = BASO) 0.7 % 0-2 N Neutro Abs (test code = ANEUT) 3.5 K/cumm 1.6-7.4 N Lymph Abs (test code = ALYMPH) 3.5 K/cumm 0.5-4.6 N [place] Abs (test code = AMONO) 0.5 K/cumm 0.0-1.2 N Eos Abs (test code = AEOS) 0.28 K/cumm 0.00-0.74 N Baso Abs (test code = ABASO) 0.1 K/cumm 0.00-0.21 N Urinalysis [id number] 16:30:00 Test Item Value Reference Range Interpretation Comments Color (test code = COLOR) Yellow Yellow,Straw,Pl N yellow Clarity (test code = Clear Clear N CLAR) Specific [place] (test 1.008 1.001-1.035 N code = SPGR) pH (test code = PH) 6.5 5.0-9.0 N Ketone (test code = KET) Negative mg/dL Negative N Glucose (test code = Negative mg/dL Negative N GLUCUR) Protein (test code = Negative mg/dL Negative N PROT) Bilirubin (test code = Negative mg/dL Negative N BILI) Occult Blood (test code = Negative Negative N UDOB) Urobilinogen (test code = 0.2 mg/dL 0.2-1.0 N UROB) Nitrite (test code = NIT) Negative Negative N Leuk Esterase (test code Negative Negative N = LEUK) Micros Exam (test code = Not indicated MEXAM)
== END 2020-08-24 16:10 | disposition home or self-care (01) ==
LOC: ER 14:45
PROC: 0JQ00ZZ Repair Scalp Subcutaneous Tissue and Fascia, Open Approach (ICD-10-PCS; principal; 2020-08-24)
DX: S01.01XA Laceration without foreign body of scalp, initial encounter (principal); W22.8XXA Striking against or struck by other objects, initial encounter; Y93.89 Activity, other specified; Y92.9 Unspecified place or not applicable; Z23 Encounter for immunization; Z88.8 Allergy status to other drugs, medicaments and biological substances; F20.9 Schizophrenia, unspecified
CPT/HCPCS: 70450; 90471; 90714; 99284

== ENCOUNTER 2020-08-31 09:32 | Emergency (ER) | payer OTHER ==
--- OUTSIDE RECORDS SUMMARY | 2020-08-31 09:56 | XMS REPORT | Continuity of Care Document ---
:1960 Author Organization [facility] t Address [address] [place] [address] Care Team Providers Name Role Phone UNKNOWN [...] = TSH) 0.80 mIU/mL 0.270-4.200 N Lipid [id number] 23:31:00 Test Item Value Reference Range Interpretation Comments Cholesterol (test 156 mg/dL 0-200 N code = CHOL) Triglycerides (test 208 mg/dL 9-200 H code = TRIG) HDL (test code = 38 mg/dL 40-60 L HDL) Chol/HDL (test code 4.1 Ratio 0.0-5.0 N = CHOLPHDL) LDL, Calculated 76 0-130 N (NOTE)RISK O F HEART (test code = LDLC) DISEASEPu blished by [place] Heart AssociationAnal yte Optim al Boderline Increased RiskC HOL <200 200-239 >240TRI G <150 150-199 >200HDL Male: >60 <40HDL Female: >60 <50 LDL < 100 130-15 9 >160 LDL NEAR OPTIMAL IS 100- 129 VLDL (test code = 42 mg/dL 5-40 H VLDL) LDL/HDL (test code = 2 LDLPHDL) Alcohol/Ethanol, [id number] 16:53:00 Test Item Value Reference Range Interpretation Comments Alcohol, Ethyl <0.01 g/dL 0.00-0.01 N Intoxicated 0.080 (test code = ETOH) g/dL or m ore Comprehensive Metabolic [id number] 16:53:00 Test Item Value Reference Range Interpretation [...] is not provided , and the patient isAnna-Ammercy can, multiply by 1.2 12. If sex [...] by the National Kidney Foundation,http ://nkd ep.nih.gov [id number] 16:53:00 Test Item Value Reference Range Interpretation [...] = THC) POSITIVE Negative A CBC with [id number] 16:40:00 Test Item Value Reference Range Interpretation [...] code = ALYMPH) 3.5 K/cumm 0.5-4.6 N [place] Abs (test code = AMONO) 0.5 K/cumm 0.0-1.2 N Eos Abs (test code = AEOS) 0.28 K/cumm 0.00-0.74 N Baso Abs (test code = ABASO) 0.1 K/cumm 0.00-0.21 N Urinalysis [id number] 16:30:00 Test Item Value Reference Range Interpretation Comments Color (test code = COLOR) Yellow Yellow,Straw,Pl N yellow Clarity (test code = Clear Clear N CLAR) Specific [place] (test 1.008 1.001-1.035 N code = SPGR) [...]
--- NOTE | 2020-08-31 10:08 | ER ---
Nurse's Notes [facility] Name: iH Chandler Age: 59 yrs Sex: Male : 1960 Arrival Date: 08/31/2020 Time: 09:34 Bed 13 Private MD: Diagnosis: Encounter for removal of sutures Presentation: 08/31 09:53 Chief complaint: Patient states: needs sutures removed from top of head, removed one, iw has six left, hd them placed a week ago. Coronavirus screen: At this time, the client does not indicate any symptoms associated with coronavirus-19. Ebola Screen: Patient negative for fever greater than or equal to 101.5 degrees Fahrenheit, and additional compatible Ebola Virus Disease symptoms Patient denies exposure to infectious person. Patient denies travel to an Ebola-affected area in the 21 days before illness onset. No symptoms or risks identified at this time. Initial Sepsis Screen: Does the patient meet any 2 criteria? No. Patient's initial sepsis screen is negative. Does the patient have a suspected source of infection? No. Patient's initial sepsis screen is negative. Risk Assessment: Do you want to hurt yourself or someone else? Patient reports no desire to harm self or others. Onset of symptoms was August 24, 2020. 09:53 Method Of Arrival: Ambulatory iw 09:53 Acuity: CARMELO 5 iw Historical: - Allergies: 09:55 Ativan; iw - PMHx: 09:55 Bipolar disorder; hypotension; Schizophrenia; iw - Immunization history:: Adult Immunizations not up to date. - Social history:: Smoking status: Patient denies any tobacco usage or history of. Screenin:55 Abuse screen: Denies threats or abuse. Denies injuries from another. Nutritional iw screening: No deficits noted. Tuberculosis screening: No symptoms or risk factors identified. Fall Risk None identified. Assessment: 09:55 General: Appears in no apparent distress. Behavior is calm, cooperative. Pain: Denies iw pain. Neuro: Level of Consciousness is awake, alert, obeys commands, Oriented to person, place, time, situation, Moves all extremities. Full function. Cardiovascular: Patient's skin is warm and dry. Respiratory: Respiratory effort is even, unlabored, Respiratory pattern is regular, symmetrical. Derm: Skin is healthy with good turgor. Musculoskeletal: Range of motion: intact in all extremities. Vital Signs: 09:53 BP 119 / 93; Pulse 87; Resp 16; Temp 97.9; Pulse Ox 97% on R/A; iw ED Course: 09:34 Patient arrived in ED. ag5 09:49 [facility] pm1 09:50 Cristobal Mercer MD is Attending Physician. pm1 09:51 Wendi Silva RN is Primary Nurse. iw 09:54 Triage completed. iw 09:54 Arm band placed on. iw 09:55 Patient has correct armband on for positive identification. iw 10:13 No provider procedures requiring assistance completed. Patient did not have IV access iw during this emergency room visit. Administered Medications: No medications were administered Outcome: 10:07 Discharge ordered by . pm1 10:14 Patient left the ED. iw 10:14 Discharged to home ambulatory. iw 10:14 Condition: good 10:14 Discharge instructions given to patient, Instructed on discharge instructions, follow up and referral plans. 10:14 No charge visit due to suture removal. Signatures: Wendi Silva RN RN Rafita Barnes NP OPERATIONS LEAD pm1 Valentin Maurer ag5
--- NOTE | 2020-08-31 10:08 | EDPHYS ---
Physician Documentation [facility] Name: Hi Chandler Age: 59 yrs Sex: Male : 1960 Arrival Date: 08/31/2020 Time: 09:34 Bed 13 Private MD: ED Physician Cristobal Mercer HPI: 08/31 10:04 This 59 yrs old Male presents to ER via Ambulatory with complaints of Suture pm1 Removal. 10:04 The patient has sutures on the forehead. Previous treatment: The patient was initially pm1 treated 7 day(s) ago. Sutures/teresa progress: The patient has no c/o's. The wound is well-healing with no redness, swelling, discharge, or dehiscence reported. Patient with laceration to forehead 7 days ago and was sutured in the ER here. Patient removed one suture himself 2 days ago. He was trying to prevent coming to the ER to have them removed. He could not get the other ones himself so came to get them out today. Well healed area - scab tissue growing over sutures. Historical: - Allergies: 09:55 Ativan; iw - PMHx: 09:55 Bipolar disorder; hypotension; Schizophrenia; iw - Immunization history:: Adult Immunizations not up to date. - Social history:: Smoking status: Patient denies any tobacco usage or history of. ROS: 10:04 Constitutional: Negative for fever, chills, and weight loss. pm1 10:04 Neuro: Negative for headache, weakness, numbness, tingling, and seizure. 10:04 Skin: Positive for laceration(s), of the forehead, Negative for abscesses, cellulitis, swelling. 10:04 All other systems are negative. Exam: 10:04 Constitutional: This is a well developed, well nourished patient who is awake, alert, pm1 and in no acute distress. Head/Face: Normocephalic, atraumatic. 10:04 Skin: Appearance: normal except for affected area, Wound recheck: Suture laceration closure: the wound is healing well, the edges are well approximated, no evidence of dehiscence, no drainage, no erythema, no swelling. 10:04 Neuro: Exam negative for acute changes, Orientation: is normal, Motor: is normal, moves all fours, strength is normal, strength is 5/5 in all extremities, Gait: is steady, at a normal pace, without difficulty. Vital Signs: 09:53 BP 119 / 93; Pulse 87; Resp 16; Temp 97.9; Pulse Ox 97% on R/A; iw MDM: 09:51 Patient medically screened. pm1 10:04 Data reviewed: vital signs. Data interpreted: Pulse oximetry: on room air is 97 %. pm1 Interpretation: normal. Counseling: I had a detailed discussion with the patient and/or guardian regarding: the historical points, exam findings, and any diagnostic results supporting the discharge/admit diagnosis, to return to the emergency department if symptoms worsen or persist or if there are any questions or concerns that arise at home. Administered Medications: No medications were administered Disposition: 17:51 Co-signature as Attending Physician, Cristobal Mercer MD. rn Disposition: 08/31/20 10:07 Discharged to Home. Impression: Encounter for removal of sutures. - Condition is Stable. - Discharge Instructions: Suture Removal, Care After. - Medication Reconciliation Form, Thank You Letter, Antibiotic Education, Prescription Opioid Use form. - Follow up: Emergency Department; When: As needed; Reason: Worsening of condition. Follow up: Private Physician; When: As needed; Reason: Recheck today's complaints, Continuance of care, Re-evaluation by your physician. - Problem is new. - Symptoms have improved. Signatures: Wendi Silva RN RN iw Nieto, Roman, MD MD rn Marinas, Patrick, HOPPER FEEDER HOPPER FEEDER pm1 Corrections: (The following items were deleted from the chart) 10:14 10:07 08/31/2020 10:07 Discharged to Home. Impression: Encounter for removal of iw sutures. Condition is Stable. Forms are Medication Reconciliation Form, Thank You Letter, Antibiotic Education, Prescription Opioid Use. Follow up: Emergency Department; When: As needed; Reason: Worsening of condition. Follow up: Private Physician; When: As needed; Reason: Recheck today's complaints, Continuance of care, Re-evaluation by your physician. Problem is new. Symptoms have improved. pm1
[2020-08-31 10:23] VITALS: BP 119/93; TEMP 97.9; O2SAT 97
== END 2020-08-31 10:14 | disposition home or self-care (01) ==
LOC: ER 09:32
DX: Z48.02 Encounter for removal of sutures (principal)

== ENCOUNTER 2020-12-03 10:55 | Emergency (ER) | payer OTHER ==
--- OUTSIDE RECORDS SUMMARY | 2020-12-03 10:58 | XMS REPORT | Continuity of Care Document ---
:1960 Author Organization [facility] t Address [facility] [place] [address] Care Team Providers Name Role Phone UNKNOWN [...] = TSH) 0.80 mIU/mL 0.270-4.200 N Lipid [id number] 23:31:00 Test Item Value Reference Range Interpretation Comments Cholesterol (test 156 mg/dL 0-200 N code = CHOL) Triglycerides (test 208 mg/dL 9-200 H code = TRIG) HDL (test code = 38 mg/dL 40-60 L HDL) Chol/HDL (test code 4.1 Ratio 0.0-5.0 N = CHOLPHDL) LDL, Calculated 76 0-130 N (NOTE)RISK O F HEART (test code = LDLC) DISEASEPu blished by [place] Heart AssociationAnal yte Optim al Boderline Increased RiskC HOL <200 200-239 >240TRI G <150 150-199 >200HDL Male: >60 <40HDL Female: >60 <50 LDL < 100 130-15 9 >160 LDL NEAR OPTIMAL IS 100- 129 VLDL (test code = 42 mg/dL 5-40 H VLDL) LDL/HDL (test code = 2 LDLPHDL) Alcohol/Ethanol, [id number] 16:53:00 Test Item Value Reference Range Interpretation Comments Alcohol, Ethyl <0.01 g/dL 0.00-0.01 N Intoxicated 0.080 (test code = ETOH) g/dL or m ore Comprehensive Metabolic [id number] 16:53:00 Test Item Value Reference Range Interpretation [...] is not provided , and the patient isAfafsaneh-Ammercy can, multiply by 1.2 12. If sex [...] by the National Kidney Foundation,http ://nkd ep.nih.gov [id number] 16:53:00 Test Item Value Reference Range Interpretation [...] = THC) POSITIVE Negative A CBC with [id number] 16:40:00 Test Item Value Reference Range Interpretation [...] code = ALYMPH) 3.5 K/cumm 0.5-4.6 N [place] Abs (test code = AMONO) 0.5 K/cumm 0.0-1.2 N Eos Abs (test code = AEOS) 0.28 K/cumm 0.00-0.74 N Baso Abs (test code = ABASO) 0.1 K/cumm 0.00-0.21 N Urinalysis [id number] 16:30:00 Test Item Value Reference Range Interpretation Comments Color (test code = COLOR) Yellow Yellow,Straw,Pl N yellow Clarity (test code = Clear Clear N CLAR) Specific [place] (test 1.008 1.001-1.035 N code = SPGR) [...]
--- NOTE | 2020-12-03 13:22 | EDPHYS ---
Physician Documentation [facility] Name: Hi Chandler Age: 60 yrs Sex: Male : 1960 Arrival Date: 12/03/2020 Time: 11:15 Bed 24 Private MD: ED Physician Alex Whiteside HPI: 12/03 13:19 This 60 yrs old Male presents to ER via Ambulatory with complaints of Facial kb Swelling. 13:19 open sores. Description: erythematous. Onset: The symptoms/episode began/occurred 1.5 kb week(s) ago. Possible cause(s): unknown. Associated signs and symptoms: Pertinent positives: erythema, Pertinent negatives: discharge, drainage, foreign body sensation, fever, headache, nausea, shortness of breath, swelling, vomiting. Modifying factors: the symptoms are alleviated by nothing, the symptoms are aggravated by nothing. Severity of symptoms: At their worst the symptoms were mild, in the emergency department the symptoms are unchanged. The patient has not experienced similar symptoms in the past. The patient has not recently seen a physician. Pt reports he believes he has a staph infection. Open sores with erythema noted to chin and upper back, tender to touch. Historical: - Allergies: 11:16 Ativan; ll1 - PMHx: 11:16 Bipolar disorder; hypotension; Schizophrenia; ll1 - PSHx: 11:16 None; ll1 - Immunization history:: Flu vaccine is up to date. - Social history:: Smoking status: Patient reports the use of cigarette tobacco products, smokes one pack cigarettes per day. ROS: 13:17 Constitutional: Negative for fever, chills, and weight loss, Cardiovascular: Negative kb for chest pain, palpitations, and edema, Respiratory: Negative for shortness of breath, cough, wheezing, and pleuritic chest pain, Abdomen/GI: Negative for abdominal pain, nausea, vomiting, diarrhea, and constipation, MS/Extremity: Negative for injury and deformity, Neuro: Negative for headache, weakness, numbness, tingling, and seizure. 13:17 Skin: Positive for of the chin, left trapezius and right trapezius, open sores. Exam: 13:17 Constitutional: This is a well developed, well nourished patient who is awake, alert, kb and in no acute distress. Head/Face: Normocephalic, atraumatic. Chest/axilla: Normal chest wall appearance and motion. Nontender with no deformity. No lesions are appreciated. Cardiovascular: Regular rate and rhythm with a normal S1 and S2. No gallops, murmurs, or rubs. Normal PMI, no JVD. No pulse deficits. Respiratory: Lungs have equal breath sounds bilaterally, clear to auscultation and percussion. No rales, rhonchi or wheezes noted. No increased work of breathing, no retractions or nasal flaring. Abdomen/GI: Soft, non-tender, with normal bowel sounds. No distension or tympany. No guarding or rebound. No evidence of tenderness throughout. MS/ Extremity: Pulses equal, no cyanosis. Neurovascular intact. Full, normal range of motion. Neuro: Awake and alert, GCS 15, oriented to person, place, time, and situation. Cranial nerves II-XII grossly intact. Motor strength 5/5 in all extremities. Sensory grossly intact. Cerebellar exam normal. Normal gait. 13:17 Skin: Appearance: normal except for affected area, open sores with erythema to chin and upper back. Vital Signs: 11:16 Pulse 99; Resp 18; Temp 97.9; Pulse Ox 95% on R/A; Weight 79.38 kg; Height 5 ft. 10 in. ll1 (177.80 cm); Pain 8/10; 11:16 BP 124 / 92; ll1 11:16 Body Mass Index 25.11 (79.38 kg, 177.80 cm) ll1 MDM: 13:14 Patient medically screened. kb 13:19 Data reviewed: vital signs, nurses notes. Data interpreted: Pulse oximetry: on room air kb is 95 %. Interpretation: normal. Counseling: I had a detailed discussion with the patient and/or guardian regarding: the historical points, exam findings, and any diagnostic results supporting the discharge/admit diagnosis, the need for outpatient follow up, a family practitioner, to return to the emergency department if symptoms worsen or persist or if there are any questions or concerns that arise at home. Administered Medications: 13:36 Drug: Bactrim (160 mg-800 mg (DS) 1 tablet Route: PO; vg1 13:36 Follow up: Response: Medication administered at discharge. vg1 Disposition: 12/03/20 13:21 Discharged to Home. Impression: Local infection of the skin and subcutaneous tissue, unspecified. - Condition is Stable. - Discharge Instructions: Wound Infection, [id number]. - Prescriptions for Bactrim DS 800- 160 mg Oral Tablet - take 1 tablet by ORAL route every 12 hours for 10 days; 20 tablet. - Medication Reconciliation Form, Thank You Letter, Antibiotic Education, Prescription Opioid Use form. - Follow up: Emergency Department; When: As needed; Reason: Worsening of condition. Follow up: Private Physician; When: 2 - 3 days; Reason: Recheck today's complaints, Continuance of care, Re-evaluation by your physician. Addendum: 12/04/2020 14:18 Co-signature as Attending Physician, Alex Whiteside MD I agree with the assessment and k dr plan of care. Signatures: Eduarda Edward, MANAGER PROFESSIONAL DEVELOPMENT-C MANAGER PROFESSIONAL DEVELOPMENT-Ckb Alex Whiteside MD MD kdr Joseline Burnett, RN RN vg1 Lani Talley RN RN ll1 Corrections: (The following items were deleted from the chart) 12/03 13:37 13:21 12/03/2020 13:21 Discharged to Home. Impression: Local infection of the skin and vg1 subcutaneous tissue, unspecified. Condition is Stable. Forms are Medication Reconciliation Form, Thank You Letter, Antibiotic Education, Prescription Opioid Use. Follow up: Emergency Department; When: As needed; Reason: Worsening of condition. Follow up: Private Physician; When: 2 - 3 days; Reason: Recheck today's complaints, Continuance of care, Re-evaluation by your physician. kb
--- NOTE | 2020-12-03 13:22 | ER ---
Nurse's Notes [facility] Sae Name: Hi Chandler Age: 60 yrs Sex: Male : 1960 Arrival Date: 12/03/2020 Time: 11:15 Bed 24 Private MD: Diagnosis: Local infection of the skin and subcutaneous tissue, unspecified Presentation: 12/03 11:16 Chief complaint: Patient states: Sores to face under swenson area for 10 days. States he ll1 believes its another staph infection. No fever. Coronavirus screen: Client denies travel out of the [place] in the last 14 days. At this time, the client does not indicate any symptoms associated with coronavirus-19. Ebola Screen: Patient denies travel to an Ebola-affected area in the 21 days before illness onset. Initial Sepsis Screen: Does the patient meet any 2 criteria? HR > 90 bpm. No. Patient's initial sepsis screen is negative. Does the patient have a suspected source of infection? Yes: Skin breakdown/wound. Risk Assessment: Do you want to hurt yourself or someone else? Patient reports no desire to harm self or others. Onset of symptoms was November 23, 2020. 11:16 Method Of Arrival: Ambulatory ll1 11:16 Acuity: CARMELO 4 ll1 Triage Assessment: 11:18 General: Appears in no apparent distress. Behavior is calm, cooperative, appropriate ll1 for age. Pain: Complains of pain in face (under swenson) Pain currently is 8 out of 10 on a pain scale. Quality of pain is described as aching. Neuro: No deficits noted. Cardiovascular: No deficits noted. Respiratory: No deficits noted. Derm: Reports sores under swenson area. Historical: - Allergies: 11:16 Ativan; ll1 - PMHx: 11:16 Bipolar disorder; hypotension; Schizophrenia; ll1 - PSHx: 11:16 None; ll1 - Immunization history:: Flu vaccine is up to date. - Social history:: Smoking status: Patient reports the use of cigarette tobacco products, smokes one pack cigarettes per day. Screenin:05 Abuse screen: Denies threats or abuse. Nutritional screening: No deficits noted. vg1 Tuberculosis screening: No symptoms or risk factors identified. Fall Risk None identified. Assessment: 13:00 General: Appears in no apparent distress. comfortable, Behavior is calm, cooperative. vg1 Pain: Complains of pain in jaw, head, upper shoulders. Pain currently is 8 out of 10 on a pain scale. Quality of pain is described as burning. Neuro: Level of Consciousness is awake, alert, obeys commands, Oriented to person, place, time, situation. Cardiovascular: Patient's skin is warm and dry. Respiratory: Airway is patent Respiratory effort is even, unlabored. GI: No signs and/or symptoms were reported involving the gastrointestinal system. : No signs and/or symptoms were reported regarding the genitourinary system. EENT: No signs and/or symptoms were reported regarding the EENT system. Derm: Skin is red, Reports burning, itching. Musculoskeletal: Circulation, motion, and sensation intact. Vital Signs: 11:16 Pulse 99; Resp 18; Temp 97.9; Pulse Ox 95% on R/A; Weight 79.38 kg; Height 5 ft. 10 in. ll1 (177.80 cm); Pain 8/10; 11:16 BP 124 / 92; ll1 11:16 Body Mass Index 25.11 (79.38 kg, 177.80 cm) ll1 ED Course: 11:15 Patient arrived in ED. ll1 11:16 Arm band placed on. ll1 11:18 Triage completed. ll1 12:55 Candelario Pickens PA is PHCP. [facility] 12:55 Alex Whiteside MD is Attending Physician. [facility] 12:56 Joseline Burnett, YADIRA is Primary Nurse. vg1 13:05 Patient has correct armband on for positive identification. Placed in gown. Bed in low vg1 position. Call light in reach. 13:14 PHCP role handed off by Candelario Pickens PA kb 13:14 Eduarda Edward FNP-C is PHCP. kb 13:37 No provider procedures requiring assistance completed. Patient did not have IV access vg1 during this emergency room visit. Administered Medications: 13:36 Drug: Bactrim (160 mg-800 mg (DS) 1 tablet Route: PO; vg1 13:36 Follow up: Response: Medication administered at discharge. vg1 Outcome: 13:21 Discharge ordered by . kb 13:37 Discharged to home ambulatory. vg1 13:37 Condition: stable 13:37 Discharge instructions given to patient, Instructed on discharge instructions, follow up and referral plans. medication usage, Demonstrated understanding of instructions, follow-up care, medications, Prescriptions given X 1. 13:37 Patient left the ED. vg1 Signatures: Eduarda Edward FNP-C FNP-Candelario Cardoso PA PA jmm Garcia, Victoria, RN RN vg1 Lani Talley RN RN ll1
[2020-12-03 13:42] VITALS: BP 124/92; TEMP 97.9; O2SAT 95
[2020-12-03] MEDS ORDERED: SMZ./TMP. 800/160 MG TABLET ONE (13:48)
== END 2020-12-03 13:37 | disposition home or self-care (01) ==
LOC: ER 10:55
DX: L08.9 Local infection of the skin and subcutaneous tissue, unspecified (principal); F17.210 Nicotine dependence, cigarettes, uncomplicated; Z88.8 Allergy status to other drugs, medicaments and biological substances
CPT/HCPCS: 99283

== ENCOUNTER 2023-07-03 11:30 | Emergency (ER) | payer OTHER ==
[2023-07-03] MEDS ORDERED: LIDOCAINE 2% W/EPI 1:200,000 MPF 20 ML VIAL IM ONE (12:13)
--- NOTE | 2023-07-03 12:20 | ER ---
Nurse's Notes [facility] Name: Hi Chandler Age: 62 yrs Sex: Male : 1960 Arrival Date: 07/03/2023 Time: 11:30 Bed 13 Private MD: Diagnosis: Cutaneous abscess, unspecified Presentation: 07/03 11:36 Chief complaint: Patient states: he has had "oozing bumps" on the back of his neck for ap3 approx 4 days. patient states he started taking a friends antibiotics to help, but is almost out of them and "figured I needed to come get seen so I could get some more". Coronavirus screen: At this time, the client does not indicate any symptoms associated with coronavirus-19. Ebola Screen: No symptoms or risks identified at this time. Initial Sepsis Screen: Does the patient meet any 2 criteria? No. Patient's initial sepsis screen is negative. Does the patient have a suspected source of infection? Yes: Skin breakdown/wound. Risk Assessment: Do you want to hurt yourself or someone else? Patient reports no desire to harm self or others. Onset of symptoms was June 29, 2023. 11:36 Method Of Arrival: Ambulatory ap3 11:36 Acuity: CARMELO 3 ap3 Triage Assessment: 11:38 General: Appears in no apparent distress. Behavior is calm, cooperative, appropriate ap3 for age. Pain: Complains of pain in back of neck Pain currently is 0 out of 10 on a pain scale. at worst was 8 out of 10 on a pain scale. Pain began gradually. Neuro: Level of Consciousness is awake, alert, obeys commands, Oriented to person, place, time, situation. Cardiovascular: Patient's skin is warm and dry. Respiratory: Airway is patent Respiratory effort is even, unlabored, Respiratory pattern is regular, symmetrical. Derm: Wound noted back of neck. Historical: - Allergies: 11:38 Ativan; ap3 - PMHx: 11:38 Bipolar disorder; hypotension; Schizophrenia; ap3 - Immunization history:: Client reports receiving the 2nd dose of the Covid vaccine. - Social history:: Smoking status: Patient reports the use of cigarette tobacco products, smokes one pack cigarettes per day. Screenin:39 [facility] ED Fall Risk Assessment (Adult) History of falling in the last 3 months, ap3 including since admission No falls in past 3 months (0 pts). Abuse screen: Denies threats or abuse. Nutritional screening: No deficits noted. Tuberculosis screening: No symptoms or risk factors identified. Assessment: 12:00 Reassessment: Patient appears in no apparent distress at this time. Patient and/or db family updated on plan of care and expected duration. Pain level reassessed. Patient is alert, oriented x 3, equal unlabored respirations, skin warm/dry/pink. General: Appears in no apparent distress. comfortable, Behavior is calm, cooperative. Pain: Complains of pain in back of neck. Neuro: Level of Consciousness is awake, alert, obeys commands, Oriented to person, place, time. Derm: Abscess located on back of neck DRAINAGE. 2 ABSCESSES. Vital Signs: 11:36 BP 85 / 63; Pulse 82; Resp 17; Temp 97.7; Pulse Ox 99% ; Weight 79.38 kg; Pain 0/10; ap3 12:01 BP 102 / 66; ap3 12:30 BP 103 / 68; Pulse 80; Resp 16; Pulse Ox 98% on R/A; db 11:36 Pain Scale: Adult ap3 ED Course: 11:32 Patient arrived in ED. ts1 11:38 Triage completed. ap3 11:38 Roshan Lamar DO is Attending Physician. ms3 11:39 Arm band placed on left wrist. ap3 11:52 Radha Patino, RN is Primary Nurse. db 12:15 Assist provider with I \\T\\ D: of an abscess on BACK OF NECK. db 12:19 Emmanuel Sebastian DO is Referral Physician. ms3 12:30 Patient has correct armband on for positive identification. Placed in gown. Call light db in reach. Side rails up X 1. Pulse ox on. NIBP on. Warm blanket given. 12:35 Dressings: 4X4s X 2; back of neck. db 12:45 Provided Education on: DISCHARGE. db 12:45 Patient did not have IV access during this emergency room visit. db Administered Medications: 12:05 Drug: Lidocaine-Epinephrine Infiltration -1%: (1:100,000) 10 ml Volume: 20 ml; Route: db Infiltration; 12:30 Follow up: Response: No adverse reaction db 12:32 Drug: Doxycycline PO 100 mg Route: PO; db 12:45 Follow up: Response: No adverse reaction db Medication: 12:00 VIS not applicable for this client. db Outcome: 12:20 Discharge ordered by . ms3 12:45 Discharged to home ambulatory. db 12:45 Condition: stable 12:45 Discharge instructions given to patient, Instructed on discharge instructions, follow up and referral plans. Prescriptions given X 1. 12:45 Patient left the ED. db Signatures: Shelley Torres RN RN ap3 Roshan Lamar DO DO ms3 Radha Patino RN RN db Betty Jorge, DEBBIE PAS ts1
--- NOTE | 2023-07-03 12:20 | EDPHYS ---
Physician Documentation [facility] Name: Hi Chandler Age: 62 yrs Sex: Male : 1960 Arrival Date: 07/03/2023 Time: 11:30 Bed 13 Private MD: ED Physician Roshan Lamar HPI: 07/03 14:38 This 62 yrs old Male presents to ER via Ambulatory with complaints of Boils on ms3 back of neck. 14:38 62-year-old male with past medical history of bipolar, hypertension, schizophrenia ms3 presents for abscesses on posterior scalp and right neck. Patient states he has been taking his friend's antibiotic and is unsure of what the antibiotic was. Patient states the discomfort is a 1/10. Fevers, chills, nausea, vomiting, headache are denied. Alleviating or inciting factors denied.. Historical: - Allergies: 11:38 Ativan; ap3 - PMHx: 11:38 Bipolar disorder; hypotension; Schizophrenia; ap3 - Immunization history:: Client reports receiving the 2nd dose of the Covid vaccine. - Social history:: Smoking status: Patient reports the use of cigarette tobacco products, smokes one pack cigarettes per day. ROS: 14:38 Constitutional: Negative for fever, and chills. Neck: Negative for injury, pain, and ms3 swelling, Cardiovascular: Negative for chest pain, and palpitations. Respiratory: Negative for shortness of breath, cough, wheezing, and pleuritic chest pain, Abdomen/GI: Negative for abdominal pain, nausea, vomiting, diarrhea, and constipation, MS/Extremity: Negative for injury and deformity. 14:38 Skin: Positive for abrasion(s), abscess. 14:38 All other systems are negative. Exam: 14:38 Constitutional: This is a well developed, well nourished patient who is awake, alert, ms3 and in no acute distress. Chest/axilla: Normal chest wall appearance and motion. Nontender with no deformity. Cardiovascular: Regular rate and rhythm with a normal S1 and S2. No gallops, murmurs, or rubs. Normal PMI, no JVD. No pulse deficits. Respiratory: Lungs have equal breath sounds bilaterally, clear to auscultation and percussion. No rales, rhonchi or wheezes noted. No increased work of breathing, no retractions or nasal flaring. Abdomen/GI: Soft, non-tender, with normal bowel sounds. No distension or tympany. No guarding or rebound. No evidence of tenderness throughout. Skin: Warm, dry with normal turgor. Normal color with no rashes, no lesions, and no evidence of cellulitis. MS/ Extremity: Pulses equal, no cyanosis. Neurovascular intact. Full, normal range of motion. 14:38 Skin: abscess, that is moderate sized, of the Right neck and posterior scalp, with drainage, that is purulent, with fluctuance, that is moderate. Vital Signs: 11:36 BP 85 / 63; Pulse 82; Resp 17; Temp 97.7; Pulse Ox 99% ; Weight 79.38 kg; Pain 0/10; ap3 12:01 BP 102 / 66; ap3 12:30 BP 103 / 68; Pulse 80; Resp 16; Pulse Ox 98% on R/A; db 11:36 Pain Scale: Adult ap3 Procedures: 14:38 I \T\ D: Incision and drainage was performed for an abscess of the right neck Prepped ms3 with alcohol, Anesthetized with ml's 2% Lidocaine with epinephrine. 3 ml's 2% Lidocaine with epinephrine. Incised with #11 blade. Drained moderate amount purulent fluid. Packed with iodoform gauze, Dressing: sterile 4x4 gauze, the patient tolerated the procedure well. 14:40 I \T\ D: Incision and drainage was performed for an abscess of the posterior scalp ms3 Prepped with alcohol, Anesthetized with ml's 2% Lidocaine with epinephrine. 2 ml's 2% Lidocaine with epinephrine. Incised with #11 blade. Drained moderate amount purulent fluid. Packed with iodoform gauze, Dressing: sterile 4x4 gauze, the patient tolerated the procedure well. MDM: 11:49 Patient medically screened. ms3 14:40 Differential diagnosis: abscess, cellulitis. Data reviewed: vital signs, nurses notes, ms3 and as a result, I will discharge patient. I considered the following discharge prescriptions or medication management in the emergency department Patient given rx for Doxycycline. Care significantly affected by the following Social Determinants of Health: Poor access to healthcare and/or lack of insurance. Counseling: I had a detailed discussion with the patient and/or guardian regarding: the historical points, exam findings, and any diagnostic results supporting the discharge/admit diagnosis, the need for outpatient follow up, to return to the emergency department if symptoms worsen or persist or if there are any questions or concerns that arise at home. Special discussion: I discussed with the patient/guardian in detail that at this point there is no indication for admission to the hospital. It is understood, however, that if the symptoms persist or worsen the patient needs to return immediately for re-evaluation. ED course: Patient states he felt relief after incision and drainage of abscesses. Patient to follow-up with Dr. Sebastian in 2 to 3 days. Prescription for doxycycline given. Patient understands and agrees with plan. All questions were answered. Return precautions discussed include worsening symptoms, or any other concerns. 07/03 11:50 Order name: Dressing - Wound; Complete Time: 12:30 ms3 07/03 11:50 Order name: I\T\D Setup; Complete Time: 11:55 ms3 07/03 11:50 Order name: Scalpel; Complete Time: 11:55 ms3 Administered Medications: 12:05 Drug: Lidocaine-Epinephrine Infiltration -1%: (1:100,000) 10 ml Volume: 20 ml; Route: db Infiltration; 12:30 Follow up: Response: No adverse reaction db 12:32 Drug: Doxycycline PO 100 mg Route: PO; db 12:45 Follow up: Response: No adverse reaction db Disposition Summary: 07/03/23 12:20 Discharge Ordered Location: Home ms3 Condition: Stable ms3 Diagnosis - Cutaneous abscess, unspecified ms3 Followup: ms3 - With: Emmanuel Sebastian DO - When: 2 - 3 days - Reason: Re-evaluation by your physician Discharge Instructions: - Discharge Summary Sheet ms3 - Skin Abscess ms3 - Incision and Drainage ms3 - Skin Abscess, [id number] ms3 Forms: - Medication Reconciliation Form ms3 - Thank You Letter ms3 - Antibiotic Education ms3 - Prescription Opioid Use ms3 - Patient Portal Instructions ms3 - Leadership Thank You Letter ms3 Prescriptions: - Doxycycline Hyclate 100 mg Oral Tablet - take 1 tablet by ORAL route every 12 hours; 20 tablet; Refills: 0, Product ms3 Selection Permitted Signatures: Shelley Torres RN RN ap3 Roshan Lamar DO DO ms3 Radha Patino RN RN db
[2023-07-03] MEDS ORDERED: DOXYCYCLINE 100 MG CAP PO ONE (12:43)
[2023-07-03 12:59] VITALS: TEMP 97.7
[2023-07-03 13:03] VITALS: BP 103/68; O2SAT 98
== END 2023-07-03 12:45 | disposition home or self-care (01) ==
LOC: ER 11:30
PROC: 0H94XZZ Drainage of Neck Skin, External Approach (ICD-10-PCS; principal; 2023-07-03)
PROC: 0H90XZZ Drainage of Scalp Skin, External Approach (ICD-10-PCS; 2023-07-03)
DX: L02.11 Cutaneous abscess of neck (principal); L02.811 Cutaneous abscess of head [any part, except face]; F17.210 Nicotine dependence, cigarettes, uncomplicated; Z88.8 Allergy status to other drugs, medicaments and biological substances
CPT/HCPCS: 99284

== ENCOUNTER 2024-10-28 17:29 | Emergency (ER) | payer OTHER ==
--- NOTE | 2024-10-28 18:46 | EDPHYS ---
Physician Documentation [facility] Name: Hi Chandler Age: 64 yrs Sex: Male : 1960 Arrival Date: 10/28/2024 Time: 17:29 Bed Waiting Private MD: ED Physician Daniela Sebastian HPI: 10/28 18:42 This 64 yrs old Male presents to ER via EMS with complaints of Medication sp3 Refill. 18:42 64-year-old male with a history of schizophrenia here for medication refill for "an sp3 injection". Patient states that of close normally refills less than he is out. He cannot recall the exact name of the medication. He denies any SI, HI, or any extreme psychosis. He has no somatic symptoms. Review of systems otherwise negative.. Historical: - Allergies: 18:44 Ativan; cm10 - PMHx: 18:44 Bipolar disorder; hypotension; Schizophrenia; cm10 - Immunization history:: Adult Immunizations up to date. - Infectious Disease History:: Denies. - Social history:: Smoking status: unknown. ROS: 18:42 Constitutional: Negative for fever, chills, and weight loss, Eyes: Negative for injury, sp3 pain, redness, and discharge, ENT: Negative for injury, pain, and discharge, Neck: Negative for injury, pain, and swelling, Cardiovascular: Negative for chest pain, palpitations, and edema, Respiratory: Negative for shortness of breath, cough, wheezing, and pleuritic chest pain, Abdomen/GI: Negative for abdominal pain, nausea, vomiting, diarrhea, and constipation, Back: Negative for injury and pain, MS/Extremity: Negative for injury and deformity, Skin: Negative for injury, rash, and discoloration, Neuro: Negative for headache, weakness, numbness, tingling, and seizure, Allergy/Immunology: Negative for hives, rash, and allergies, Endocrine: Negative for neck swelling, polydipsia, polyuria, polyphagia, and marked weight changes, Hematologic/Lymphatic: Negative for swollen nodes, abnormal bleeding, and unusual bruising, 18:42 All other systems are negative, Exam: 18:42 Constitutional: This is a well developed, well nourished patient who is awake, alert, sp3 and in no acute distress. Head/Face: Normocephalic, atraumatic. Eyes: Pupils equal round and reactive to light, extra-ocular motions intact. Lids and lashes normal. Conjunctiva and sclera are non-icteric and not injected. Cornea within normal limits. Periorbital areas with no swelling, redness, or edema. Neck: Trachea midline, no thyromegaly or masses palpated, and no cervical lymphadenopathy. Supple, full range of motion without nuchal rigidity, or vertebral point tenderness. No Meningismus. Chest/axilla: Normal chest wall appearance and motion. Nontender with no deformity. No lesions are appreciated. Cardiovascular: Regular rate and rhythm with a normal S1 and S2. No gallops, murmurs, or rubs. Normal PMI, no JVD. No pulse deficits. Respiratory: Lungs have equal breath sounds bilaterally, clear to auscultation and percussion. No rales, rhonchi or wheezes noted. No increased work of breathing, no retractions or nasal flaring. Abdomen/GI: Soft, non-tender, with normal bowel sounds. No distension or tympany. No guarding or rebound. No evidence of tenderness throughout. Back: No spinal tenderness. No costovertebral tenderness. Full range of motion. Skin: Warm, dry with normal turgor. Normal color with no rashes, no lesions, and no evidence of cellulitis. MS/ Extremity: Pulses equal, no cyanosis. Neurovascular intact. Full, normal range of motion. Neuro: Awake and alert, GCS 15, oriented to person, place, time, and situation. Cranial nerves II-XII grossly intact. Motor strength 5/5 in all extremities. Sensory grossly intact. Cerebellar exam normal. Normal gait. Psych: Awake, alert, with orientation to person, place and time. Behavior, mood, and affect are within normal limits. Vital Signs: 18:43 BP 106 / 87; Pulse 97; Resp 15; Temp 97.3; Pulse Ox 100% on R/A; Pain 0/10; cm10 18:43 Pain Scale: Adult cm10 MDM: 18:43 Data reviewed: vital signs, nurses notes. ED course: We are unable to fulfill any sp3 antipsychotic medications of that type in the ED. Patient is not acutely psychotic in any extreme fashion, has no suicidal or homicidal ideation. Patient will be safely discharged at this time. No acute intervention is indicated.. 18:45 Medical Screening Exam initiated sp3 Administered Medications: No medications were administered Disposition Summary: 10/28/24 18:45 Discharge Ordered Notes: Location: Home sp3 Condition: Stable sp3 Diagnosis - Medication refill, schizophrenia stable sp3 Followup: sp3 - With: Private Physician - When: Upon discharge from the Emergency Department - Reason: Continuance of care Discharge Instructions: - Discharge Summary Sheet sp3 - Managing Schizophrenia sp3 Forms: - Medication Reconciliation Form sp3 - Antibiotic Education sp3 - Prescription Opioid Use sp3 - Patient Portal Instructions sp3 - Leadership Thank You Letter sp3 Signatures: Daniela Sebastian MD MD sp3 Grecia Feliciano RN RN cm10
--- NOTE | 2024-10-28 18:46 | ER ---
Nurse's Notes [facility] Name: Hi Chandler Age: 64 yrs Sex: Male : 1960 Arrival Date: 10/28/2024 Time: 17:29 Bed Waiting Private MD: Diagnosis: Medication refill, schizophrenia stable Presentation: 10/28 18:40 Method Of Arrival: EMS: [facility] ss 18:43 Chief complaint: Patient states: HERE FOR A REFILL OF HIS SCHIZOPHRENIA MEDICATION. PT cm10 DENIES SI/HI AT THIS TIME. Coronavirus screen: Client denies travel out of the [place] in the last 14 days. Ebola Screen: Patient denies travel to an Ebola-affected area in the 21 days before illness onset. No symptoms or risks identified at this time. Initial Sepsis Screen: Does the patient meet any 2 criteria? No. Patient's initial sepsis screen is negative. Does the patient have a suspected source of infection? No. Patient's initial sepsis screen is negative. Risk Assessment: Do you want to hurt yourself or someone else? Patient reports no desire to harm self or others. Onset of symptoms was October 28, 2024. 18:43 Acuity: CARMELO 5 cm10 Triage Assessment: 18:44 General: Appears in no apparent distress. comfortable, Behavior is calm, cooperative. cm10 Neuro: No deficits noted. Level of Consciousness is awake, alert, obeys commands, Oriented to person, place, time, situation, Appropriate for age. Cardiovascular: No deficits noted. Respiratory: No deficits noted. Airway is patent Respiratory effort is even, unlabored, Respiratory pattern is regular, symmetrical. 18:45 Pain: Denies pain. cm10 Historical: - Allergies: 18:44 Ativan; cm10 - PMHx: 18:44 Bipolar disorder; hypotension; Schizophrenia; cm10 - Immunization history:: Adult Immunizations up to date. - Infectious Disease History:: Denies. - Social history:: Smoking status: unknown. Screenin:44 [facility] ED Fall Risk Assessment (Adult) History of falling in the last 3 months, cm10 including since admission No falls in past 3 months (0 pts) Confusion or Disorientation No (0 pts) Intoxicated or Sedated No (0 pts) Impaired Gait No (0 pts) Mobility Assist Device Used No (0 pt) Altered Elimination No (0 pt) Score/Fall Risk Level 0 - 2 = Low Risk Oriented to surroundings, Maintained a safe environment, Hourly rounding (assess needs \T\ fall precautionary measures) done. Abuse screen: Denies threats or abuse. Denies injuries from another. Nutritional screening: No deficits noted. Tuberculosis screening: No symptoms or risk factors identified. Vital Signs: 18:43 BP 106 / 87; Pulse 97; Resp 15; Temp 97.3; Pulse Ox 100% on R/A; Pain 0/10; cm10 18:43 Pain Scale: Adult cm10 ED Course: 17:36 Patient arrived in ED. sj2 17:39 Daniela Sebastian MD is Attending Physician. sp3 18:43 Triage completed. cm10 18:44 Arm band placed on right wrist. Patient placed in waiting room. cm10 18:45 Patient has correct armband on for positive identification. Provided Education on: cm10 FOLLOW-UP INSTRUCTIONS. 18:45 No provider procedures requiring assistance completed. Patient did not have IV access cm10 during this emergency room visit. Administered Medications: No medications were administered Medication: 18:44 VIS not applicable for this client. VIS not applicable for this client. cm10 Outcome: 18:44 Discharged to home ambulatory, cm10 18:45 Discharge ordered by . sp3 18:45 Condition: good cm10 18:45 Discharge instructions given to patient, Instructed on discharge instructions, follow up and referral plans. Demonstrated understanding of instructions, follow-up care, 18:48 Patient left the ED. cm10 Signatures: Maribel Mortensen RN RN Daniela Sebastian MD MD sp3 Grecia Feliciano RN RN cm10 Chong Vasquez sj2
[2024-10-28 19:11] VITALS: BP 106/87; TEMP 97.3; O2SAT 100
== END 2024-10-28 18:48 | disposition home or self-care (01) ==
LOC: ER 17:29
DX: Z76.0 Encounter for issue of repeat prescription (principal); F20.9 Schizophrenia, unspecified
CPT/HCPCS: 99283